=== PATIENT | female | born 1995 | race Caucasian/White ===

== ENCOUNTER → 2018-03-21 | Outpatient (CLI) | payer OTHER ==
[2018-03-21 14:35] LABS: HCT 33.9 % (34.0-46.0); HGB 11.2 gm/dL (11.4-16.0); MCH 27.7 pg (25.0-35.0); MCV 83.8 fL (80.0-100.0); Mean Platelet Volume 9.3; Platelet Count 199 k/uL (150-450); RBC 4.05 m/uL (3.80-5.40); RDW 13.3 % (11.5-15.5); WBC 12.4 k/uL (3.8-10.6)
== END ==
LOC: LABWHC1 12:42
PROVIDERS: ATTEND Obstetrics & Gynecology
DX: Z34.02 Encounter for supervision of normal first pregnancy, second trimester (principal); Z3A.00 Weeks of gestation of pregnancy not specified
CPT/HCPCS: 36415; 82950; 85027

== ENCOUNTER 2018-04-05 16:43 | Outpatient (CLI) | payer OTHER ==
[2018-04-05 17:34] LABS: Appearance,Urine Cloudy (Clear); Bacteria,Urine Rare /hpf; Bilirubin,Urine Negative (Negative); Blood,Urine Negative (Negative); Color,Urine Light Yellow; Glucose,Urine (UA) Negative (Negative); Ketones,Urine Negative (Negative); Leukocyte Esterase,Urine Large (Negative); Mucus,Urine Rare /hpf; Nitrite,Urine Negative (Negative); PH, Urine 6.5 (5.0-8.0); Protein,Urine Negative (Negative); RBC,Urine 1 /hpf (0-5); Specific Gravity,Urine 1.011 (1.001-1.035); Squamous Epithelial Cell,Urine 5 /hpf (0-4); Urobilinogen,Urine <2.0 mg/dL (<2.0); WBC,Urine 7 /hpf (0-5)
[2018-04-05 18:53] VITALS: BP 120/74; PULSE 88; RESP 18; TEMP 96.6
--- NOTE | 2018-04-27 08:30 | P.MSEPDOC ---
Presenting Problems - Arrival Data Date of Arrival on Unit: 04/05/18 Time of Arrival on Unit: 16:43 Mode of Transport: Ambulatory Vital Signs - Temperature Temperature: 96.6 F - Pulse Right Pulse Oximetery Pulse Rate: 88 Pulse Assessment Method: Automatic Cuff - Respirations Respiratory Rate: 18 Oxygen Delivery Method: Room Air O2 Sat by Pulse Oximetry: 96 - Blood Pressure Right Arm Blood Pressure: 120/74 Blood Pressure Mean: 89 Blood Pressure Source: Automatic Cuff Medical Screen Scoring (Post) - Cervical Exam Dilation: Exam Deferred Effacement: Exam Deferred Membranes: Intact - Uterine Contractions Frequency: N/A Duration: N/A Intensity: N/A - Maternal Vital Signs Maternal Temperature: N/A Maternal Blood Pressure: N/A Signs of Preeclampsia: N/A Maternal Respirations: N/A - Pain Assessment Pain Location and Character: Lower, Abdomen Pain Scale Used: Numeric (1 - 10) Pain Intensity: 3 Pain Management Goal: 2 Pain Description: *Acute, Pressure Pain Radiation Location: none Pain Frequency: Occasional Pain Duration: 1 Pain Duration Units: Days Pain Behavior: Vocalization Effects of Pain: none Pain Aggravating Factors: Position Pharmacological Interventions: Discuss Pain Med Options Non-Pharmacological Interventions: Position/Reposition - Maternal Trauma Maternal Trauma: N/A - Assessment Heart Rate: 130 Heart Rate - NICHD Category: Category I (Normal) = 0 NST: Reactive Position: N/A Station: N/A - Total Score Total Score (Post): 0 - Post Treatment Level of Risk Post Treatment Level of Risk: Low (0-5) Physician Notification (Post) - Physician Notified Physician Notified Date: 04/05/18 Physician Notified Time: 17:55 Physician/Practitioner Notified:: Dr Zarco Spoke With: [id number] New Order Received: Yes (discharge pt with instructions) - Notification Comment Comment: pt concerns of no movement, now feeling movement. urinalysis negative. Disposition - Disposition OB Disposition: LDRP Suite Discharge Date: 04/05/18 Discharge Time: 18:00 I agree with the RN Medical Screening Exam: Yes Risk & Benefit of care provided described in d/c instruction: Yes Diagnosis: DECREASED MOVEMENTS, THIRD TRIMESTER, UNSP
== END 2018-04-05 18:00 | disposition home or self-care (01) ==
LOC: FBPOP 16:43
PROVIDERS: ATTEND Obstetrics & Gynecology
DX: O36.8130 Decreased fetal movements, third trimester, not applicable or unspecified (principal); Z3A.00 Weeks of gestation of pregnancy not specified
CPT/HCPCS: 59025; 81001; G0463; 99213

== ENCOUNTER 2018-06-05 22:36 | Outpatient (CLI) | payer OTHER ==
[2018-06-05 22:49] VITALS: BP 125/76; PULSE 98; RESP 16; TEMP 97.3
--- NOTE | 2018-06-06 06:36 | P.MSEPDOC ---
Presenting Problems - Arrival Data Date of Arrival on Unit: 06/05/18 Time of Arrival on Unit: 22:36 Mode of Transport: Ambulatory - Complaint OB-Reason for Admission/Chief Complaint: Rule Out PROM Comment: PROM 1100, clear, small Medical History - Information : 1 Para: 0 Term: 0 : 0 Abortions: Spontaneous or Elective: 0 Number of Living Children: 0 - Gestational Age Gestational Age by RICCO (wks/days): 38 Weeks and 0 Days - History Complications: Smoker Review of Systems - Review of Systems Constitutional: No problems Breast: No problems ENT: No problems Cardiovascular: No problems Respiratory: No problems Gastrointestinal: No problems Genitourinary: No problems Musculoskeletal: No problems Neurological: No problems Skin: No problems Vital Signs - Temperature Temperature: 97.3 F Temperature Source: Temporal Artery Scan - Pulse Right Brachial Pulse Rate: 98 Pulse Assessment Method: Automatic Cuff - Respirations Respiratory Rate: 16 Oxygen Delivery Method: Room Air - Blood Pressure Right Arm Blood Pressure: 125/76 Blood Pressure Mean: 92 Blood Pressure Source: Automatic Cuff Medical Screen Scoring (Pre) - Cervical Exam Dilation: Exam Deferred Effacement: Exam Deferred - Uterine Contractions Frequency: N/A Duration: N/A Intensity: N/A - Maternal Vital Signs Maternal Temperature: N/A Maternal Blood Pressure: N/A Signs of Preeclampsia: N/A Maternal Respirations: N/A - Pain Assessment Pain Scale Used: Numeric (1 - 10) Pain Intensity: 0 Pain Behavior: None Exhibited - Assessment Baseline FHR: 145 Heart Rate - NICHD Category: Category I (Normal) = 0 NST: Reactive Position: N/A Station: N/A - Total Score Total Score (Pre): 0 - Level of Risk Level of Risk: Low (0-5) Medical Screen Scoring (Post) - Pain Assessment Pain Scale Used: Numeric (1 - 10) Pain Intensity: 0 - Maternal Trauma Maternal Trauma: N/A - Assessment Heart Rate: 140 Heart Rate - NICHD Category: Category I (Normal) = 0 NST: Reactive Position: N/A - Total Score Total Score (Post): 0 - Post Treatment Level of Risk Post Treatment Level of Risk: Low (0-5) Physician Notification (Post) - Physician Notified Physician Notified Date: 06/05/18 Physician Notified Time: 23:19 Physician/Practitioner Notified:: anthony Spoke With: anthony New Order Received: Yes - Notification Comment Comment: d/c home Disposition - Disposition OB Disposition: Discharge to home Discharge Date: 06/05/18 Discharge Time: 23:12 I agree with the RN Medical Screening Exam: Yes Risk & Benefit of care provided described in d/c instruction: Yes Diagnosis: FALSE LABOR BEFORE 37 COMPLETED WEEKS OF GEST, THIRD TRI
== END 2018-06-05 23:12 | disposition home or self-care (01) ==
LOC: FBPOP 22:36
PROVIDERS: ATTEND Obstetrics & Gynecology
DX: O47.03 False labor before 37 completed weeks of gestation, third trimester (principal); Z3A.38 38 weeks gestation of pregnancy
CPT/HCPCS: 59025; 84112; G0463; 99213

== ENCOUNTER 2018-06-19 16:34 | Inpatient (IN) | payer OTHER ==
[2018-06-20] MEDS ORDERED: OXYTOCIN 10 UNIT/ML 1 ML VIAL IM PRN (06:55)
[2018-06-20] MEDS ORDERED: TERBUTALINE 1 MG/ML VIAL SQ PRN (06:55)
[2018-06-20] MEDS ORDERED: LIDOCAINE 0.5% (PF) 5 MG/ML (50 ML SDV) SQ PRN (06:55)
[2018-06-20] MEDS ORDERED: METHYLERGONOVINE 0.2 MG/ML 1 ML AMP IM PRN (06:55)
[2018-06-20] MEDS ORDERED: CARBOPROST TROMETHAMINE 250 MCG/ML 1 ML AMP IM PRN (06:55)
[2018-06-20] MEDS ORDERED: OXYTOCIN 20 UNITS/1000 ML NS 1,000 ML IV SCH (07:00)
[2018-06-20] MEDS: LACTATED RINGERS 1,000 ML IV SCH ×3 (07:06→13:12)
[2018-06-20 07:14] VITALS: BMI 37.3
[2018-06-20 07:16] LABS: Basophils % (A) 0 %; Eosinophils # (A) 0.2 k/uL (0-0.7); Eosinophils % (A) 1 %; HCT 31.6 % (34.0-46.0); HGB 10.1 gm/dL (11.4-16.0); Lymphocytes # (A) 2.8 k/uL (1.0-4.8); Lymphocytes % (A) 19 %; MCH 24.3 pg (25.0-35.0); MCHC 32.1 g/dL (31.0-37.0); MCV 75.5 fL (80.0-100.0); Mean Platelet Volume 9.8; Microcytosis Slight; Monocytes # (A) 0.8 k/uL (0-1.0); Monocytes % (A) 5 %; Neutrophils # (A) 10.4 k/uL (1.3-7.7); Neutrophils % (A) 71 %; Platelet Count 209 k/uL (150-450); RBC 4.18 m/uL (3.80-5.40); RDW 14.2 % (11.5-15.5); WBC 14.7 k/uL (3.8-10.6)
[2018-06-20] MEDS: FAMOTIDINE 20 MG/2 ML VIAL IV SCH (08:32)
[2018-06-20] MEDS ORDERED: BUTORPHANOL 1 MG/ML 1 ML VIAL IV PRN (09:30)
[2018-06-20] MEDS ORDERED: ROPIVACAINE 5MG/ML 20ML VIAL ONE (11:42)
[2018-06-20] MEDS ORDERED: fentaNYL (PF) 50 MCG/ML 5 ML AMP ONE (11:42)
[2018-06-20] MEDS ORDERED: SODIUM CHLORIDE 0.9% 100 ML BAG ONE (11:42)
[2018-06-20] MEDS ORDERED: ROPIVACAINE 100 MG, fentaNYL (PF) 200 MCG in SODIUM CHLORIDE 0.9% 76 ML EPIDURAL ONE (12:05)
[2018-06-20] MEDS ORDERED: SIMETHICONE 80 MG CHEWABLE PO PRN (18:31)
[2018-06-20] MEDS ORDERED: ZOLPIDEM 5 MG TAB PO PRN (18:31)
[2018-06-20] MEDS ORDERED: BENZOCAINE/MENTHOL SPRAY 1 GM/SPRAY AEROSOL TOPICAL PRN (18:31)
[2018-06-20] MEDS ORDERED: HYDROCORTISONE 2.5% RECTAL CREAM 30 GM TUBE RECTAL PRN (18:31)
[2018-06-20] MEDS ORDERED: ACETAMINOPHEN TAB 325 MG TAB PO PRN (18:31)
[2018-06-20] MEDS ORDERED: diphenhydrAMINE 25 MG CAP PO PRN (18:31)
[2018-06-20] MEDS ORDERED: diphenhydrAMINE 50 MG/ML 1 ML VIAL IVP PRN ×2 (18:31)
[2018-06-20] MEDS ORDERED: LANOLIN CREAM 5 GM TUBE TOPICAL PRN (18:31)
[2018-06-20] MEDS ORDERED: WITCH HAZEL 1 EACH MED..PAD TOPICAL PRN (18:31)
[2018-06-20] MEDS ORDERED: HYDROcodone/APAP 5-325MG 1 EACH TAB PO PRN (18:31)
[2018-06-20] MEDS ORDERED: diphenhydrAMINE 50 MG CAP PO PRN (18:31)
--- NOTE | 2018-06-20 18:33 | P.HPOB ---
History of Present Illness H&P Date: 06/20/18 Chief Complaint: Intrauterine at term: Induction of labor Charline is a 23-year-old G one P0 at 40 weeks gestation who arrives for induction of labor. Her course was generally unremarkable and she is feeling well at this time. She was dilated to 2 cm and artificial rupture membranes was performed with clear fluid noted. We'll planning Pitocin augmentation of labor and she expects to use epidural for analgesia. All questions are answered for her prior to moving forward and she is aware of increased risk for section. Otherwise her pertinent blood type is A+ and rubella is immune, hepatitis B surface antigen was negative as was groupie strep/RPR and HIV. Vital signs stable and afebrile. Heart regular, lungs clear, extremities without pain. Regarding 1 tracing is noted. Past Medical History Past Medical History: No Reported History History of Any Multi-Drug Resistant Organisms: None Reported Past Surgical History: Ear Surgery, Tonsillectomy Past Anesthesia/Blood Transfusion Reactions: No Reported Reaction Past Psychological History: ADD/ADHD, Bipolar Smoking Status: Current every day smoker Past Alcohol Use History: None Reported Past Drug Use History: None Reported - Past Family History Father Family Medical History: No Reported History Medications and Allergies Home Medications Medication Instructions Recorded Confirmed Type Pnv No.95/Ferrous Fum/Folic AC 1 tab PO DAILY 04/05/18 06/20/18 History [ Multivitamin Tablet] Calcium Carbonate [Tums] 500 mg PO QID PRN 06/20/18 06/20/18 History Allergies Allergy/AdvReac Type Severity Reaction Status Date / Time No Known Allergies Allergy Verified 06/20/18 06:53 Exam Osteopathic Statement: *. No significant issues noted on an osteopathic structural exam other than those noted in the History and Physical/Consult. Vital Signs Temp Pulse Resp BP Pulse Ox 06/20/18 07:09 98 F 99 16 121/80 98 Intake and Output 06/20/18 06/20/18 06/20/18 06:59 14:59 22:59 Other: Weight 92.533 kg 92.533 kg - OBG Physical Exam Breast: both: normal (no masses) Abdomen: bowel sounds normal, no diffuse tenderness, no bruit present, no guarding noted, no hepatomegaly, no splenomegaly, no mass Vulva: both: normal Vagina: normal moisture, no discharge Cervix: no lesion, no discharge Uterus: normal size, normal contour Adnexa: both: normal Anus/Rectum: normal perianal skin, no rectal mass, no hemorrhoids, heme negative Results Result Diagrams: 06/20/18 06:56 Abnormal Lab Results - Last 24 Hours (Table) 06/20/18 Range/Units 06:56 WBC 14.7 H (3.8-10.6) k/uL Hgb 10.1 L (11.4-16.0) gm/dL Hct 31.6 L (34.0-46.0) % MCV 75.5 L (80.0-100.0) fL MCH 24.3 L (25.0-35.0) pg Neutrophils # 10.4 H (1.3-7.7) k/uL
--- NOTE | 2018-06-20 18:35 | P.PROBDLV ---
Vaginal Delivery Note - . Vaginal Delivery Note: Patient progressed to complete and pushing with spontaneous vaginal delivery of a viable female over a second-degree midline perineal laceration. Following delivery of the head from left occiput anterior position, mouth nares were bulb suctioned and anterior posterior shoulders were easily delivered. Once this was accomplished baby was placed on mother's abdomen where the umbilical cord was clamped cut usual fashion following 30 seconds of cord pulsation. Nursery personnel was present to assume care. Placenta was then delivered intact and Pitocin was added to the IV. Second-degree midline laceration was then repaired in usual fashion following Xylocaine for analgesia and 3-0 Vicryl scores were 8 and 9 at one and 5 minutes respectively and weight was 7 lbs. 4 oz. Both mother and baby are stable following delivery.
[2018-06-20] MEDS: IBUPROFEN 600 MG TAB PO PRN (18:40)
[2018-06-20] MEDS ORDERED: guaiFENesin-DM 100-10MG/5ML 10 ML CUP PO PRN (21:23)
[2018-06-20] MEDS: SENNOSIDES-DOCUSATE SODIUM 1 EACH TAB PO SCH (21:37)
[2018-06-21] MEDS: FAMOTIDINE 20 MG/2 ML VIAL IV SCH (01:36)
[2018-06-21] MEDS: IBUPROFEN 600 MG TAB PO PRN ×3 (01:59→15:41)
--- NOTE | 2018-06-21 07:24 | P.DS ---
Providers Date of admission: 06/20/18 06:38 Expected date of discharge: 06/21/18 Attending physician: Nithin Vieyra Primary care physician: Stated None Hospital Course: Charline is doing very well post day 1. She is ambulating, voiding, and she is tolerating her diet. She voices no complaints. Vital signs are stable and afebrile. Heart regular, lungs clear, extremities without pain. She is requesting discharge home tonight. Prescription for Motrin was for her to her pharmacy. All questions were answered and discharge instructions were thoroughly reviewed she will follow up with me in 6 weeks. Patient Condition at Discharge: Good Plan - Discharge Summary New Discharge Prescriptions: New Ibuprofen [Motrin] 600 mg PO Q6HR PRN #30 tab PRN Reason: Pain No Action Pnv No.95/Ferrous Fum/Folic AC [ Multivitamin Tablet] 1 tab PO DAILY Calcium Carbonate [Tums] 500 mg PO QID PRN PRN Reason: Heartburn Discharge Medication List Pnv No.95/Ferrous Fum/Folic AC [ Multivitamin Tablet] 1 tab PO DAILY 05/13 [History] Calcium Carbonate [Tums] 500 mg PO QID PRN 06/20/18 [History] Ibuprofen [Motrin] 600 mg PO Q6HR PRN #30 tab 06/21/18 [Rx] Follow up Appointment(s)/Referral(s): Nithin Vieyra DO [Doctor of Osteopathic Medicine] - 6 Weeks Activity/Diet/Wound Care/Special Instructions: No heavy lifting, limit stairs and driving, and pelvic rest. If any high temperatures, heavy bleeding, or severe pain call my office Discharge Disposition: HOME SELF-CARE
[2018-06-21] MEDS: SENNOSIDES-DOCUSATE SODIUM 1 EACH TAB PO SCH (07:41)
[2018-06-21 08:37] VITALS: RESP 16
[2018-06-21 16:41] VITALS: BP 98/61; PULSE 81; TEMP 97.8
== END 2018-06-21 20:00 | disposition home or self-care (01) | DRG 807 ==
LOC: 4FBP 06-20 06:38
PROVIDERS: ADMIT Obstetrics & Gynecology; ATTEND Obstetrics & Gynecology
PROC: 10E0XZZ Delivery of Products of Conception, External Approach (ICD-10-PCS; principal; 2018-06-20)
PROC: 0KQM0ZZ Repair Perineum Muscle, Open Approach (ICD-10-PCS; 2018-06-20)
PROC: 3E033VJ Introduction of Other Hormone into Peripheral Vein, Percutaneous Approach (ICD-10-PCS; 2018-06-20)
PROC: 10907ZC Drainage of Amniotic Fluid, Therapeutic from Products of Conception, Via Natural or Artificial Opening (ICD-10-PCS; 2018-06-20)
PROC: 00HU33Z Insertion of Infusion Device into Spinal Canal, Percutaneous Approach (ICD-10-PCS; 2018-06-20)
PROC: 3E0R3BZ Introduction of Anesthetic Agent into Spinal Canal, Percutaneous Approach (ICD-10-PCS; 2018-06-20)
DX: O70.1 Second degree perineal laceration during delivery (principal); Z37.0 Single live birth; O99.344 Other mental disorders complicating childbirth; F31.9 Bipolar disorder, unspecified; F90.9 Attention-deficit hyperactivity disorder, unspecified type; O99.334 Smoking (tobacco) complicating childbirth; F17.200 Nicotine dependence, unspecified, uncomplicated; Z3A.40 40 weeks gestation of pregnancy; Z79.899 Other long term (current) drug therapy
CPT/HCPCS: 85025; 86850; 86900; 86901

== ENCOUNTER 2019-12-31 09:29 | Emergency (ER) | payer OTHER ==
[2019-12-31 09:35] VITALS: RESP 18; TEMP 97.5
[2019-12-31] MEDS ORDERED: SODIUM CHLORIDE 0.9% 1,000 ML IV STA ×2 (09:57→12:20)
[2019-12-31] MEDS ORDERED: MORPHINE SULFATE 4 MG/ML SYRINGE IV STA (10:03)
[2019-12-31] MEDS ORDERED: MORPHINE SULFATE 4 MG/ML SYRINGE IVP STA ×2 (10:07→12:02)
--- NOTE | 2019-12-31 10:10 | ED ---
General Adult HPI - General Chief complaint: Abdominal Pain Stated complaint: back pain Time Seen by Provider: 12/31/19 09:54 Source: patient Mode of arrival: ambulatory Limitations: no limitations - History of Present Illness Initial comments: Dictation was produced using Dat[employer] dictation software. please excuse any grammatical, word or spelling errors. This patient was cared for during a federal and state declared state of emergency secondary to Covid 19 Chief Complaint: 24-year-old feel presents with severe lower right back pain. History of Present Illness: 24-year-old female presents today with severe lower back pain. Patient states that it started today. She woke up with these pain. Patient has any radiation of symptoms. Denies any fever, chills or night sweats. No nausea vomiting. Denies any vaginal discharge. She denies any abdominal pain. Patient is sexually active. She does not know if she is or not. States pain is severe. She denies any history of kidney stones. Denies any diarrhea. Denies any urinary symptoms. The ROS documented in this emergency department record has been reviewed and confirmed by me. Those systems with pertinent positive or negative responses have been documented in the HPI. All other systems are other negative and/or noncontributory. PHYSICAL EXAM: General Impression: Alert and oriented x3, acute distress secondary to pain, diaphoretic HEENT: Normocephalic atraumatic, extra-ocular movements intact, pupils equal and reactive to light bilaterally, mucous membranes moist. Cardiovascular: Heart regular rate and rhythm Chest: Able to complete full sentences, no retractions, no tachypnea Abdomen: abdomen soft, non-tender, non-distended, no organomegaly Musculoskeletal: Pulses present and equal in all extremities, no peripheral edema, no tenderness to palpation over the lower back, no CVA tenderness Motor: no focal deficits noted Neurological: CN II-XII grossly intact, no focal motor or sensory deficits noted Skin: Intact with no visualized rashes Psych: Normal affect and mood ED course: 24-year-old female presents with right lower back pain. As upon arrival are within acceptable limits. Patient in severe distress. Patient given 4 mg of IV morphine. Laboratory evaluation obtained. Mild stenosis 1.4. Metabolic panel is unremarkable. Urinalysis shows greater than 102 red blood cells. [address] of the abdomen and pelvis was obtained showing 5 mm UVJ calculus with mild to moderate obstructive uropathy. There is also additional nonobstructive right renal calculi. Patient observed in emergency department for couple hours. Patient reevaluated bedside she reports complete resolution of her symptoms. Patient likely passed the stone. Patient clear for discharge she is given referral to urology. Patient told that she has incidental findings on her CT she is advised follow up with her primary care physician regarding these. - Related Data Home Medications Medication Instructions Recorded Confirmed No Known Home Medications 12/31/19 12/31/19 Allergies Allergy/AdvReac Type Severity Reaction Status Date / Time Penicillins Allergy Rash/Hives Verified 12/31/19 10:44 Review of Systems ROS Statement: Those systems with pertinent positive or pertinent negative responses have been documented in the HPI. ROS Other: All systems not noted in ROS Statement are negative. Past Medical History Past Medical History: No Reported History History of Any Multi-Drug Resistant Organisms: None Reported Past Surgical History: Ear Surgery, Tonsillectomy Past Anesthesia/Blood Transfusion Reactions: No Reported Reaction Past Psychological History: ADD/ADHD, Bipolar Smoking Status: Current every day smoker Past Alcohol Use History: None Reported Past Drug Use History: None Reported - Past Family History Father Family Medical History: No Reported History General Exam Limitations: no limitations Course Vital Signs 12/31/19 12/31/19 09:30 12:11 Temperature 97.5 F L Pulse Rate 91 68 Respiratory 18 18 Rate Blood Pressure 124/83 104/68 O2 Sat by Pulse 97 99 Oximetry Medical Decision Making - Lab Data Result diagrams: 12/31/19 10:01 12/31/19 10:01 Lab Results 12/31/19 12/31/19 12/31/19 Range/Units 10:01 10:01 10:01 WBC 11.4 H (3.8-10.6) k/uL RBC 5.56 H (3.80-5.40) m/uL Hgb 13.1 (11.4-16.0) gm/dL Hct 41.3 (34.0-46.0) % MCV 74.2 L (80.0-100.0) fL MCH 23.6 L (25.0-35.0) pg MCHC 31.8 (31.0-37.0) g/dL RDW 15.8 H (11.5-15.5) % Plt Count 246 (150-450) k/uL Neutrophils % 73 % Lymphocytes % 19 % Monocytes % 4 % Eosinophils % 2 % Basophils % 0 % Neutrophils # 8.3 H (1.3-7.7) k/uL Lymphocytes # 2.1 (1.0-4.8) k/uL Monocytes # 0.5 (0-1.0) k/uL Eosinophils # 0.2 (0-0.7) k/uL Basophils # 0.0 (0-0.2) k/uL Microcytosis Slight Sodium 138 (137-145) mmol/L Potassium 4.4 (3.5-5.1) mmol/L Chloride 108 H (98-107) mmol/L Carbon Dioxide 22 (22-30) mmol/L Anion Gap 8 mmol/L BUN 11 (7-17) mg/dL Creatinine 0.69 (0.52-1.04) mg/dL Est GFR (CKD-EPI)AfAm >90 (>60 ml/min/1.73 sqM) Est GFR (CKD-EPI)NonAf >90 (>60 ml/min/1.73 sqM) Glucose 96 (74-99) mg/dL Calcium 9.3 (8.4-10.2) mg/dL Total Bilirubin 0.8 (0.2-1.3) mg/dL AST 30 (14-36) U/L ALT 29 (4-34) U/L Alkaline Phosphatase 134 H (38-126) U/L Total Protein 7.8 (6.3-8.2) g/dL Albumin 4.5 (3.5-5.0) g/dL Lipase 64 (23-300) U/L Urine Color Urine Appearance (Clear) Urine pH (5.0-8.0) Ur Specific [place] (1.001-1.035) Urine Protein (Negative) Urine Glucose (UA) (Negative) Urine Ketones (Negative) Urine Blood (Negative) Urine Nitrite (Negative) Urine Bilirubin (Negative) Urine Urobilinogen (<2.0) mg/dL Ur Leukocyte Esterase (Negative) Urine RBC (0-5) /hpf Urine WBC (0-5) /hpf Ur Squamous Epith Cells (0-4) /hpf Urine Mucus (None) /hpf Urine HCG, Qual Not Detected (Not Detectd) 12/31/19 Range/Units 12:00 WBC (3.8-10.6) k/uL RBC (3.80-5.40) m/uL Hgb (11.4-16.0) gm/dL Hct (34.0-46.0) % MCV (80.0-100.0) fL MCH (25.0-35.0) pg MCHC (31.0-37.0) g/dL RDW (11.5-15.5) % Plt Count (150-450) k/uL Neutrophils % % Lymphocytes % % Monocytes % % Eosinophils % % Basophils % % Neutrophils # (1.3-7.7) k/uL Lymphocytes # (1.0-4.8) k/uL Monocytes # (0-1.0) k/uL Eosinophils # (0-0.7) k/uL Basophils # (0-0.2) k/uL Microcytosis Sodium (137-145) mmol/L Potassium (3.5-5.1) mmol/L Chloride (98-107) mmol/L Carbon Dioxide (22-30) mmol/L Anion Gap mmol/L BUN (7-17) mg/dL Creatinine (0.52-1.04) mg/dL Est GFR (CKD-EPI)AfAm (>60 ml/min/1.73 sqM) Est GFR (CKD-EPI)NonAf (>60 ml/min/1.73 sqM) Glucose (74-99) mg/dL Calcium (8.4-10.2) mg/dL Total Bilirubin (0.2-1.3) mg/dL AST (14-36) U/L ALT (4-34) U/L Alkaline Phosphatase (38-126) U/L Total Protein (6.3-8.2) g/dL Albumin (3.5-5.0) g/dL Lipase (23-300) U/L Urine Color Yellow Urine Appearance Cloudy H (Clear) Urine pH 5.5 (5.0-8.0) Ur Specific [place] 1.025 (1.001-1.035) Urine Protein 1+ H (Negative) Urine Glucose (UA) Negative (Negative) Urine Ketones Negative (Negative) Urine Blood Large H (Negative) Urine Nitrite Negative (Negative) Urine Bilirubin Negative (Negative) Urine Urobilinogen <2.0 (<2.0) mg/dL Ur Leukocyte Esterase Trace H (Negative) Urine RBC >182 H (0-5) /hpf Urine WBC 4 (0-5) /hpf Ur Squamous Epith Cells 2 (0-4) /hpf Urine Mucus Many H (None) /hpf Urine HCG, Qual (Not Detectd) Disposition Clinical Impression: Kidney stone Disposition: HOME SELF-CARE Condition: Good Instructions (If sedation given, give patient instructions): Kidney Stones (ED) Additional Instructions: Please follow up with urology on a nonemergent basis for outpatient management of kidney stones. There are multiple nonspecific findings that were seen on her CT that needs to be followed up by with her primary care physician. Is patient prescribed a controlled substance at d/c from ED?: No Referrals: Chriss Yusuf MD [STAFF PHYSICIAN] - 1-2 days Time of Disposition: 13:01
[2019-12-31 10:12] LABS: Basophils % (A) 0 %; Eosinophils # (A) 0.2 k/uL (0-0.7); Eosinophils % (A) 2 %; HCT 41.3 % (34.0-46.0); HGB 13.1 gm/dL (11.4-16.0); Lymphocytes # (A) 2.1 k/uL (1.0-4.8); Lymphocytes % (A) 19 %; MCH 23.6 pg (25.0-35.0); MCHC 31.8 g/dL (31.0-37.0); MCV 74.2 fL (80.0-100.0); Mean Platelet Volume 9.2; Microcytosis Slight; Monocytes # (A) 0.5 k/uL (0-1.0); Monocytes % (A) 4 %; Neutrophils # (A) 8.3 k/uL (1.3-7.7); Neutrophils % (A) 73 %; Platelet Count 246 k/uL (150-450); RBC 5.56 m/uL (3.80-5.40); RDW 15.8 % (11.5-15.5); WBC 11.4 k/uL (3.8-10.6)
[2019-12-31] MEDS ORDERED: ONDANSETRON 4 MG/2 ML VIAL IVP STA (10:22)
[2019-12-31 10:27] LABS: ALT 29 U/L (4-34); AST 30 U/L (14-36); African American GFR (CKD) >90 (>60 ml/min/1.73 sqM); Albumin 4.5 g/dL (3.5-5.0); Alkaline Phosphatase 134 U/L (38-126); Anion Gap 8 mmol/L; Blood Urea Nitrogen 11 mg/dL (7-17); Calcium 9.3 mg/dL (8.4-10.2); Carbon Dioxide 22 mmol/L (22-30); Chloride 108 mmol/L (98-107); Glucose 96 mg/dL (74-99); Non-African American GFR(CKD) >90 (>60 ml/min/1.73 sqM); Potassium 4.4 mmol/L (3.5-5.1); Sodium 138 mmol/L (137-145); Total Bilirubin 0.8 mg/dL (0.2-1.3); Total Protein 7.8 g/dL (6.3-8.2)
[2019-12-31 12:14] VITALS: BP 104/68; PULSE 68
--- NOTE | 2019-12-31 12:16 | CT ---
EXAMINATION TYPE: CT abdomen pelvis w con DATE OF EXAM: 12/31/2019 COMPARISON: 01/20/2015 HISTORY: 24-year-old female cramping, back pain, diarrhea TECHNIQUE: Contiguous axial scanning of the abdomen and pelvis following administration of 100 ml Iso eben 300 IV contrast. Delayed images through the kidneys and coronal/sagittal reconstructions perform ed. CT DLP: 1528.4 mGycm Automated exposure control for dose reduction was used. FINDINGS: Heart size without pericardial effusion. Small hiatal hernia. Lung bases clear without pleural effusi on. No focal liver lesion or biliary ductal dilatation. Portal venous system is patent. Gallbladder, adrenal glands, left kidney, spleen, and pancreas appear within normal limits. Four nonobstructive right renal calculi measuring up to 4 mm. There is mild to moderate right-sided h ydroureteronephrosis. A 5 mm calculus is present at the right UVJ. No dilated small bowel, free fluid, or free air. Numerous scattered nonenlarged and borderline sized mesenteric lymph nodes measuring up to 8 mm, refe r to coronal image 42. Appearance is relatively unchanged from prior. Likely chronic reactive/post in flammatory etiology. Mild scattered stool. Normal appendix. No pericolonic inflammatory change. Uterus anteverted. Bladder collapsed. There is a 2.0 cm dominant follicle functional cyst left ovary. Right ovary is visualized. No abnormal fluid collection the pelvis or pelvic lymphadenopathy. Bones: Small osteitis pubis changes. No osseous destructive process. IMPRESSION: 1. A 5 mm right UVJ calculus with mild to moderate obstructive uropathy. 2. Additional nonobstructive right renal calculi measuring up to 4 mm. 3. Small hiatal hernia. 2.0 cm dominant follicle or functional cyst left ovary. Scattered borderline sized mesenteric lymph nodes are unchanged, likely chronic reactive/post inflammatory etiology.
[2019-12-31] MEDS ORDERED: KETOROLAC 30 MG/ML 1 ML VIAL IVP STA (12:20)
[2019-12-31 12:23] LABS: Appearance,Urine Cloudy (Clear); Bilirubin,Urine Negative (Negative); Blood,Urine Large (Negative); Color,Urine Yellow; Glucose,Urine (UA) Negative (Negative); Ketones,Urine Negative (Negative); Leukocyte Esterase,Urine Trace (Negative); Mucus,Urine Many /hpf; Nitrite,Urine Negative (Negative); PH, Urine 5.5 (5.0-8.0); Protein,Urine 1+ (Negative); RBC,Urine >182 /hpf (0-5); Specific Gravity,Urine 1.025 (1.001-1.035); Squamous Epithelial Cell,Urine 2 /hpf (0-4); Urobilinogen,Urine <2.0 mg/dL (<2.0); WBC,Urine 4 /hpf (0-5)
== END 2019-12-31 13:37 | disposition home or self-care (01) ==
LOC: EC 09:29
DX: M48.061 Spinal stenosis, lumbar region without neurogenic claudication (principal); N20.2 Calculus of kidney with calculus of ureter; N13.9 Obstructive and reflux uropathy, unspecified; F17.200 Nicotine dependence, unspecified, uncomplicated; Z88.0 Allergy status to penicillin
CPT/HCPCS: 36415; 80053; 83690; 85025; 81001; 81025; 84702; 74177; 96374; 96375 ×2; 96376; 96361 ×2; 99284; J2270; J2405; J1885; Q9967

== ENCOUNTER 2020-12-01 20:25 | Emergency (ER) | payer OTHER ==
[2020-12-01 20:41] VITALS: BP 124/79; PULSE 91; RESP 16; TEMP 97.9
--- NOTE | 2020-12-01 21:02 | ED ---
URI HPI - General Chief Complaint: Upper Respiratory Infection Stated Complaint: Cough,Loss of voice Time Seen by Provider: 12/01/20 20:43 Source: patient Mode of arrival: ambulatory Limitations: no limitations - History of Present Illness Initial Comments: Patient is a 25-year-old female presenting to the emergency department with concerns of a cough and loss of her voice started yesterday. She states she noticed a little bit of phlegm production and her cough yesterday and then slowly lost her voice or up the evening. She denies any chest pain or shortness of breath, no fevers or chills. She denies any nausea or vomiting. She denies history of asthma or COPD. Her daughter is here with her now with similar symptoms. She has no further complaints at this time. Upon arrival to the ER her vitals are stable. - Related Data Home Medications Medication Instructions Recorded Confirmed No Known Home Medications 12/31/19 12/31/19 Allergies Allergy/AdvReac Type Severity Reaction Status Date / Time Penicillins Allergy Rash/Hives Verified 12/01/20 20:38 Review of Systems ROS Statement: Those systems with pertinent positive or pertinent negative responses have been documented in the HPI. ROS Other: All systems not noted in ROS Statement are negative. Past Medical History Past Medical History: No Reported History History of Any Multi-Drug Resistant Organisms: None Reported Past Surgical History: Ear Surgery, Tonsillectomy Past Anesthesia/Blood Transfusion Reactions: No Reported Reaction Past Psychological History: ADD/ADHD, Bipolar Smoking Status: Current every day smoker Past Alcohol Use History: Rare Past Drug Use History: None Reported - Past Family History Father Family Medical History: No Reported History General Exam - General Exam Comments Initial Comments: GENERAL: Patient is well-developed and well-nourished. Patient is nontoxic and in no acute distress. HEAD: Atraumatic, normocephalic. EYES: Pupils equal round and reactive to light, extraocular movements intact, sclera anicteric, conjunctiva are normal. Eyelids were unremarkable. ENT: TMs normal, nares patent, oropharynx clear without exudates. Moist mucous membranes. NECK: Normal range of motion, supple without lymphadenopathy or JVD. LUNGS: Unlabored respirations. Breath sounds clear to auscultation bilaterally and equal. No wheezes rales or rhonchi. HEART: Regular rate and rhythm without murmurs, rubs or gallops. ABDOMEN: Soft, nontender, normoactive bowel sounds. No guarding, no rebound. No masses appreciated. : Deferred MUSCULOSKELETAL: Normal extremities with adequate strength and normal range of motion, no pitting or edema. No clubbing or cyanosis. NEUROLOGICAL: Patient is alert and oriented x 3. Motor and sensory are also intact. Cranial nerves II through XII grossly intact. Symmetrical smile. Normal speech, normal gait. PSYCH: Normal mood, normal affect. SKIN: Warm, Dry, normal turgor, no rashes or lesions noted. Limitations: no limitations Course Vital Signs 12/01/20 20:39 Temperature 97.9 F Pulse Rate 91 Respiratory 16 Rate Blood Pressure 124/79 O2 Sat by Pulse 96 Oximetry Medical Decision Making - Medical Decision Making Patient is a 25-year-old female here for a cough and loss of voice that started yesterday. Her vitals are stable, her exam is normal. His exercise shows no acute process, covert swab is negative. I discussed with patient this is most likely viral in nature. Recommended [id number] cough suppressant, Tylenol and Motrin as needed. She can follow up with her PCP. She is in agreement with this plan of care and she is stable for discharge. Case discussed with Dr. Field. - Lab Data Lab Results 12/01/20 Range/Units 21:08 Coronavirus (PCR) Not Detected (Not Detectd) Disposition Clinical Impression: Viral respiratory illness Disposition: HOME SELF-CARE Condition: Stable Instructions (If sedation given, give patient instructions): Upper Respiratory Infection (ED) Additional Instructions: Please return to the Emergency Department if symptoms worsen or any other con cerns. May take OTC medications to treat your symptoms, tylenol/motrin for pain control. Follow-up with your primary doctor. Is patient prescribed a controlled substance at d/c from ED?: No Referrals: None,Stated [Primary Care Provider] - 1-2 days Time of Disposition: 22:36
--- NOTE | 2020-12-01 21:58 | XR ---
EXAMINATION TYPE: XR chest 2V DATE OF EXAM: 12/01/2020 COMPARISON: NONE HISTORY: Cough TECHNIQUE: 2 views FINDINGS: Heart and mediastinum are normal. Lungs are clear. Diaphragm is normal. Bony thorax is norm al. IMPRESSION: Normal chest. Normal heart.
== END 2020-12-01 22:46 | disposition home or self-care (01) ==
LOC: EC 20:25
DX: J98.8 Other specified respiratory disorders (principal); R49.1 Aphonia; B97.89 Other viral agents as the cause of diseases classified elsewhere; Z20.822 Contact with and (suspected) exposure to COVID-19; F17.200 Nicotine dependence, unspecified, uncomplicated; Z88.0 Allergy status to penicillin
CPT/HCPCS: 71046; 87635; 99283

== ENCOUNTER 2021-12-29 22:59 | Emergency (ER) | payer OTHER ==
[2021-12-29 23:20] VITALS: TEMP 98.2
[2021-12-29 23:54] LABS: Appearance,Urine Cloudy (Clear); Bacteria,Urine Rare /hpf; Bilirubin,Urine Negative (Negative); Blood,Urine Negative (Negative); Calcium Oxalate Crystals,Urine Many /hpf; Color,Urine Yellow; Glucose,Urine (UA) Negative (Negative); Ketones,Urine Negative (Negative); Leukocyte Esterase,Urine Large (Negative); Mucus,Urine Few /hpf; Nitrite,Urine Negative (Negative); PH, Urine 5.5 (5.0-8.0); Protein,Urine Trace (Negative); RBC,Urine 2 /hpf (0-5); Specific Gravity,Urine 1.023 (1.001-1.035); Squamous Epithelial Cell,Urine 11 /hpf (0-4); Urobilinogen,Urine <2.0 mg/dL (<2.0); WBC,Urine 9 /hpf (0-5)
--- NOTE | 2021-12-30 01:16 | ED ---
General Adult HPI - General Chief complaint: Back Pain/Injury Stated complaint: 12 wks preg, abdominal pain Time Seen by Provider: 12/30/21 00:35 Source: patient, RN notes reviewed Mode of arrival: ambulatory Limitations: no limitations - History of Present Illness Initial comments: 26-year-old female presents to the emergency department for evaluation of generalized lower abdominal cramping discomfort accompanied by diffuse lower back pain. States symptoms began yesterday after taking antibiotics prescribed to treat Chlamydia. Did not eat when she took these medicines. Has not taken anything to treat her discomfort. Pain worsens with position change. Denies fever, chills, headache, chest pain, shortness of breath, nausea, vomiting, diarrhea, dysuria, hematuria, vaginal bleeding or leaking of fluids. - Related Data Home Medications Medication Instructions Recorded Confirmed No Known Home Medications 12/31/19 12/31/19 Allergies Allergy/AdvReac Type Severity Reaction Status Date / Time Penicillins Allergy Rash/Hives Verified 12/29/21 23:15 Review of Systems ROS Statement: Those systems with pertinent positive or pertinent negative responses have been documented in the HPI. ROS Other: All systems not noted in ROS Statement are negative. Past Medical History Past Medical History: No Reported History History of Any Multi-Drug Resistant Organisms: None Reported Past Surgical History: Ear Surgery, Tonsillectomy Past Anesthesia/Blood Transfusion Reactions: No Reported Reaction Past Psychological History: ADD/ADHD, Bipolar Smoking Status: Current every day smoker Past Alcohol Use History: Rare Past Drug Use History: None Reported - Past Family History Father Family Medical History: No Reported History General Exam Limitations: no limitations (Well-developed, well-nourished female in no acute distress. Initial temperature 98.2, pulse 87, respiration 16, blood pressure 113/74, pulse ox 100% on room air.) General appearance: alert, in no apparent distress ENT exam: Present: normal exam, normal oropharynx, mucous membranes moist Respiratory exam: Present: normal lung sounds bilaterally. Absent: respiratory distress, wheezes, rales, rhonchi, stridor Cardiovascular Exam: Present: regular rate, normal rhythm, normal heart sounds. Absent: systolic murmur, diastolic murmur, rubs, gallop, clicks GI/Abdominal exam: Present: soft, normal bowel sounds. Absent: distended, tenderness, guarding, rebound, rigid Back exam: Absent: CVA tenderness (R), CVA tenderness (L) Neurological exam: Present: alert, oriented X3, CN II-XII intact Psychiatric exam: Present: normal affect, normal mood Skin exam: Present: warm, dry, intact, normal color. Absent: rash Course Vital Signs 12/29/21 12/30/21 23:15 02:48 Temperature 98.2 F Pulse Rate 87 66 Respiratory 16 14 Rate Blood Pressure 113/74 124/67 O2 Sat by Pulse 100 97 Oximetry - Reevaluation(s) Reevaluation #1: 12/30/21 02:15 heart tones unobtainable per OB staff. Given that patient is having no vaginal bleeding or discharge, has stable vital signs, and is resting comfortably at this time, she will be discharged home to follow up with her OB provider as scheduled. Medical Decision Making - Medical Decision Making This is a 26-year-old female who presents to the emergency department for evaluation of low back pain and mild abdominal cramping, onset last night after taking antibiotic medication. Upon exam, patient is well-appearing and in no acute distress. She is 12 weeks with no vaginal bleeding or discharge. Patient is tolerating oral intake without difficulty. Urinalysis appear somewhat contaminated though was sent for culture. Laboratory studies show mild hyponatremia. OB staff unable to obtain heart tones; patient is scheduled to follow up with her FLASH OVEN OPERATOR for ultrasound this week. Return parameters discussed in detail. Patient verbalizes understanding and agrees with this plan. Attending: Emir. - Lab Data Result diagrams: 12/30/21 01:29 12/30/21 01:29 Lab Results 12/29/21 12/30/21 12/30/21 Range/Units 23:33 01:29 01:29 WBC 9.4 (3.8-10.6) k/uL RBC 4.23 (3.80-5.40) m/uL Hgb 11.9 (11.4-16.0) gm/dL Hct 33.7 L (34.0-46.0) % MCV 79.7 L (80.0-100.0) fL MCH 28.0 (25.0-35.0) pg MCHC 35.2 (31.0-37.0) g/dL RDW 14.7 (11.5-15.5) % Plt Count 186 (150-450) k/uL MPV 9.4 Neutrophils % 62 % Lymphocytes % 28 % Monocytes % 4 % Eosinophils % 3 % Basophils % 0 % Neutrophils # 5.9 (1.3-7.7) k/uL Lymphocytes # 2.6 (1.0-4.8) k/uL Monocytes # 0.4 (0-1.0) k/uL Eosinophils # 0.3 (0-0.7) k/uL Basophils # 0.0 (0-0.2) k/uL Sodium 132 L (137-145) mmol/L Potassium 4.2 (3.5-5.1) mmol/L Chloride 105 (98-107) mmol/L Carbon Dioxide 22 (22-30) mmol/L Anion Gap 5 mmol/L BUN 8 (7-17) mg/dL Creatinine 0.46 L (0.52-1.04) mg/dL Est GFR (CKD-EPI)AfAm >90 (>60 ml/min/1.73 sqM) Est GFR (CKD-EPI)NonAf >90 (>60 ml/min/1.73 sqM) Glucose 107 H (74-99) mg/dL Calcium 8.6 (8.4-10.2) mg/dL Urine Color Yellow Urine Appearance Cloudy H (Clear) Urine pH 5.5 (5.0-8.0) Ur Specific [place] 1.023 (1.001-1.035) Urine Protein Trace H (Negative) Urine Glucose (UA) Negative (Negative) Urine Ketones Negative (Negative) Urine Blood Negative (Negative) Urine Nitrite Negative (Negative) Urine Bilirubin Negative (Negative) Urine Urobilinogen <2.0 (<2.0) mg/dL Ur Leukocyte Esterase Large H (Negative) Urine RBC 2 (0-5) /hpf Urine WBC 9 H (0-5) /hpf Ur Squamous Epith Cells 11 H (0-4) /hpf Calcium Oxalate Crystal Many H (None) /hpf Urine Bacteria Rare H (None) /hpf Urine Mucus Few H (None) /hpf Disposition Clinical Impression: Low back pain, Abdominal cramping Disposition: HOME SELF-CARE Condition: Stable Instructions (If sedation given, give patient instructions): Abdominal Pain in (ED) Additional Instructions: Increase your intake of fluids to maintain adequate hydration. May take Tylenol if needed for discomfort. Follow up with your OB-Leasing Associate as scheduled. Return to the emergency department with any new, worsening, or concerning sympt oms. Is patient prescribed a controlled substance at d/c from ED?: No Referrals: None,Stated [Primary Care Provider] - 1-2 days Isma Cohen FLASH OVEN OPERATOR [Provider Group] - 1-2 days Forms: Work/School Release Time of Disposition: 02:30
[2021-12-30 01:39] LABS: Basophils % (A) 0 %; Eosinophils # (A) 0.3 k/uL (0-0.7); Eosinophils % (A) 3 %; HCT 33.7 % (34.0-46.0); HGB 11.9 gm/dL (11.4-16.0); Lymphocytes # (A) 2.6 k/uL (1.0-4.8); Lymphocytes % (A) 28 %; MCHC 35.2 g/dL (31.0-37.0); MCV 79.7 fL (80.0-100.0); Mean Platelet Volume 9.4; Monocytes # (A) 0.4 k/uL (0-1.0); Monocytes % (A) 4 %; Neutrophils # (A) 5.9 k/uL (1.3-7.7); Neutrophils % (A) 62 %; Platelet Count 186 k/uL (150-450); RBC 4.23 m/uL (3.80-5.40); RDW 14.7 % (11.5-15.5); WBC 9.4 k/uL (3.8-10.6)
[2021-12-30 01:55] LABS: African American GFR (CKD) >90 (>60 ml/min/1.73 sqM); Anion Gap 5 mmol/L; Blood Urea Nitrogen 8 mg/dL (7-17); Calcium 8.6 mg/dL (8.4-10.2); Carbon Dioxide 22 mmol/L (22-30); Chloride 105 mmol/L (98-107); Glucose 107 mg/dL (74-99); Non-African American GFR(CKD) >90 (>60 ml/min/1.73 sqM); Sodium 132 mmol/L (137-145)
[2021-12-30 02:11] LABS: Potassium 4.2 mmol/L (3.5-5.1)
[2021-12-30 02:49] VITALS: BP 124/67; PULSE 66; RESP 14
== END 2021-12-30 02:49 | disposition home or self-care (01) ==
LOC: EC 22:59
DX: O26.891 Other specified pregnancy related conditions, first trimester (principal); F31.9 Bipolar disorder, unspecified; F17.200 Nicotine dependence, unspecified, uncomplicated; Z88.0 Allergy status to penicillin; Z3A.12 12 weeks gestation of pregnancy
CPT/HCPCS: 36415; 80048; 81001; 85025; 87086; 99284

== ENCOUNTER 2022-03-19 13:54 | Outpatient (CLI) | payer OTHER ==
[2022-03-19 14:39] LABS: Amorphous Sediment,Urine Rare /hpf; Appearance,Urine Cloudy (Clear); Bacteria,Urine Rare /hpf; Bilirubin,Urine Negative (Negative); Blood,Urine Negative (Negative); Color,Urine Yellow; Glucose,Urine (UA) Negative (Negative); Ketones,Urine 2+ (Negative); Leukocyte Esterase,Urine Negative (Negative); Mucus,Urine Rare /hpf; Nitrite,Urine Negative (Negative); Protein,Urine Negative (Negative); RBC,Urine 1 /hpf (0-5); Specific Gravity,Urine 1.019 (1.001-1.035); Squamous Epithelial Cell,Urine 2 /hpf (0-4); Urobilinogen,Urine <2.0 mg/dL (<2.0); WBC,Urine 4 /hpf (0-5)
[2022-03-19 15:22] VITALS: BP 124/63; PULSE 102; RESP 16; TEMP 97.9
--- NOTE | 2022-03-20 04:59 | P.MSEPDOC ---
Presenting Problems - Arrival Data Date of Arrival on Unit: 03/19/22 Time of Arrival on Unit: 13:54 Mode of Transport: Ambulatory - Complaint OB-Reason for Admission/Chief Complaint: Pain Comment: Patient came to triage with complaints of constant aching pain in her mid to upper back, mid abdomin and pain in her right arm. rating pain 10/10. Medical History - Information : 2 Para: 1 Term: 1 : 0 Abortions: Spontaneous or Elective: 0 Number of Living Children: 1 - Gestational Age Gestational Age by RICCO (wks/days): 23 Weeks and 5 Days - History Complications: Smoker Review of Systems - Review of Systems Constitutional: No problems Breast: No problems ENT: No problems Cardiovascular: No problems Respiratory: No problems Gastrointestinal: No problems Genitourinary: No problems Musculoskeletal: No problems Neurological: No problems Skin: No problems Vital Signs - Temperature Temperature: 97.9 F Temperature Source: Temporal Artery Scan - Pulse Pulse Oximetery Pulse Rate: 102 Pulse Assessment Method: Pulse Oximetry - Respirations Respiratory Rate: 16 Oxygen Delivery Method: Room Air - Blood Pressure Right Arm Blood Pressure: 124/63 Blood Pressure Mean: 83 Blood Pressure Source: Automatic Cuff Medical Screen Scoring - Assessment - Baby A Heart Rate - NICHD Category: Category I (Normal) Physician Notification - Physician Notified Physician Notified Date: 03/19/22 Physician Notified Time: 15:03 Physician: Quang Santos New Order Received: No Maternal Triage Index - Urgent/Priority 2 Urgent Priority 2: Yes Provider Notified: Quang Santos Provider Notified Time: 15:03 Criteria Met for Priority 2: Patient came to triage with complaints of constant aching pain in her mid to upper back, mid abdomin and pain in her right arm. rating pain 10/10. Disposition - Disposition OB Disposition: Discharge to home Transferred to:: home Discharge Date: 03/19/22 Discharge Time: 15:03 I agree with the RN Medical Screening Exam: Yes Case reviewed; plan agreed upon as documented in EMR&OBIX.: Yes Diagnosis: PAIN, UNSPECIFIED (Patient presents to labor and delivery with non- obstetrical complaints including back pain are and leg pain. heart tones are reassuring is no evidence of compromise. Patient is sent to the emergency department for evaluation for non-obstetrical concerns.)
== END 2022-03-19 15:12 ==
LOC: FBPOP 13:54
PROVIDERS: ATTEND Obstetrics & Gynecology
DX: O26.892 Other specified pregnancy related conditions, second trimester (principal); M54.6 Pain in thoracic spine; Z3A.23 23 weeks gestation of pregnancy; Z87.891 Personal history of nicotine dependence
CPT/HCPCS: 81001; G0463; 99213

== ENCOUNTER 2022-03-19 15:18 | Emergency (ER) | payer OTHER ==
[2022-03-19] MEDS ORDERED: CEPHALEXIN 250 MG CAP PO STA (16:12)
[2022-03-19] MEDS ORDERED: ACETAMINOPHEN TAB 500 MG TAB PO STA (16:30)
[2022-03-19] MEDS ORDERED: SODIUM CHLORIDE 0.9% 1,000 ML IV STA (16:38)
[2022-03-19 16:56] LABS: Basophils % (A) 0 %; Eosinophils # (A) 0.1 k/uL (0-0.7); Eosinophils % (A) 1 %; HCT 33.2 % (34.0-46.0); Lymphocytes # (A) 0.7 k/uL (1.0-4.8); Lymphocytes % (A) 9 %; MCH 26.5 pg (25.0-35.0); MCHC 33.3 g/dL (31.0-37.0); MCV 79.7 fL (80.0-100.0); Mean Platelet Volume 11.4; Monocytes # (A) 0.6 k/uL (0-1.0); Monocytes % (A) 8 %; Neutrophils # (A) 5.8 k/uL (1.3-7.7); Neutrophils % (A) 80 %; Platelet Count 161 k/uL (150-450); RBC 4.16 m/uL (3.80-5.40); RDW 13.9 % (11.5-15.5); WBC 7.2 k/uL (3.8-10.6)
[2022-03-19 17:06] LABS: ALT 15 U/L (4-34); AST 26 U/L (14-36); African American GFR (CKD) >90 (>60 ml/min/1.73 sqM); Albumin 3.8 g/dL (3.5-5.0); Alkaline Phosphatase 88 U/L (38-126); Anion Gap 11 mmol/L; Blood Urea Nitrogen 4 mg/dL (7-17); Carbon Dioxide 19 mmol/L (22-30); Chloride 101 mmol/L (98-107); Glucose 96 mg/dL (74-99); Magnesium 1.5 mg/dL (1.6-2.3); Non-African American GFR(CKD) >90 (>60 ml/min/1.73 sqM); Sodium 131 mmol/L (137-145); Total Bilirubin 0.3 mg/dL (0.2-1.3); Total Protein 6.7 g/dL (6.3-8.2)
--- NOTE | 2022-03-19 17:56 | US ---
EXAMINATION TYPE: US venous doppler duplex LE DATE OF EXAM: 03/19/2022 5:35 PM COMPARISON: NONE CLINICAL HISTORY: pain, . Pain in bilateral legs. No h of DVT. Patient is . SIDE PERFORMED: Bilateral TECHNIQUE: The lower extremity deep venous system is examined utilizing real time linear array sonog meka with graded compression, doppler sonography and color-flow sonography. VESSELS IMAGED: Common Femoral Vein Deep Femoral Vein Greater Saphenous Vein * Femoral Vein Popliteal Vein Small Saphenous Vein * Proximal Calf Veins (* superficial vessels) Right Leg: No evidence of DVT in veins imaged at this time. Duplicate distal popliteal vein noted. Left Leg: No evidence of DVT in veins imaged at this time. IMPRESSION: No evidence of deep vein thrombosis in both legs.
--- NOTE | 2022-03-19 18:11 | ED ---
General Adult HPI - General Chief complaint: Back Pain/Injury Stated complaint: Body aches(23 weeks preg) Time Seen by Provider: 03/19/22 16:03 Source: patient Mode of arrival: ambulatory Limitations: no limitations - History of Present Illness Initial comments: Patient is a 27-year-old A0 female at 23 weeks who presents to the emergency department with a chief complaint of body aches. Patient states symptoms started about 5 AM this morning. States she has pain in both of her legs that radiates up her body. She denies history of DVT and PE. Denies chest pain and shortness of breath. Reports dry cough. Denies fever, chills, abdomi nal pain, and vaginal bleeding. Patient was evaluated today on the labor and delivery floor. States heart tones were normal and she was sent down to the emergency department for further evaluation. - Related Data Home Medications Medication Instructions Recorded Confirmed Acetaminophen Tab [Tylenol Tab] 1,000 mg PO Q6HR 03/19/22 03/19/22 Vit No.179/Iron/Folic 1 each PO DAILY 03/19/22 03/19/22 [ Tablet] Allergies Allergy/AdvReac Type Severity Reaction Status Date / Time Penicillins Allergy Rash/Hives Verified 03/19/22 15:43 Review of Systems ROS Statement: Those systems with pertinent positive or pertinent negative responses have been documented in the HPI. ROS Other: All systems not noted in ROS Statement are negative. Past Medical History Past Medical History: No Reported History, Seizure Disorder History of Any Multi-Drug Resistant Organisms: None Reported Past Surgical History: Ear Surgery, Tonsillectomy Past Anesthesia/Blood Transfusion Reactions: No Reported Reaction Past Psychological History: ADD/ADHD, Bipolar Smoking Status: Current every day smoker Past Alcohol Use History: None Reported Past Drug Use History: None Reported - Past Family History Father Family Medical History: No Reported History General Exam Limitations: no limitations General appearance: alert Head exam: Present: atraumatic, normocephalic, normal inspection Respiratory exam: Present: normal lung sounds bilaterally. Absent: respiratory distress, wheezes, rales, rhonchi, stridor Cardiovascular Exam: Present: regular rate, normal rhythm, normal heart sounds. Absent: systolic murmur, diastolic murmur, rubs, gallop, clicks GI/Abdominal exam: Present: soft, normal bowel sounds. Absent: distended, tenderness, guarding, rebound, rigid Extremities exam: Present: normal inspection, full ROM, normal capillary refill. Absent: joint swelling, calf tenderness Neurological exam: Present: alert, oriented X3, CN II-XII intact Psychiatric exam: Present: normal affect, normal mood Skin exam: Present: warm, dry, intact, normal color. Absent: rash Course Vital Signs 03/19/22 03/19/22 15:41 18:19 Temperature 98.4 F 98.8 F Pulse Rate 107 H 104 H Respiratory 16 18 Rate Blood Pressure 106/65 133/90 O2 Sat by Pulse 98 95 Oximetry Medical Decision Making - Medical Decision Making This is a 27-year-old female who presents with body aches and bilateral leg pain. There is no calf tenderness. COVID-19 is detected. Ultrasound with Doppler of the bilateral lower ex tremities is negative for DVT. Results discussed with patient. Patient was offered inpatient antibiotic treatment and declined. Was given Tylenol in the emergency department and states that helped her pain significantly. Patient will be discharged with quarantine instructions. Return parameters discussed. Dr. Karimi is my attending. - Lab Data Result diagrams: 03/19/22 16:40 03/19/22 16:40 Lab Results 03/19/22 03/19/22 03/19/22 Range/Units 16:40 16:40 16:40 WBC 7.2 (3.8-10.6) k/uL RBC 4.16 (3.80-5.40) m/uL Hgb 11.0 L (11.4-16.0) gm/dL Hct 33.2 L (34.0-46.0) % MCV 79.7 L (80.0-100.0) fL MCH 26.5 (25.0-35.0) pg MCHC 33.3 (31.0-37.0) g/dL RDW 13.9 (11.5-15.5) % Plt Count 161 (150-450) k/uL MPV 11.4 Neutrophils % 80 % Lymphocytes % 9 % Monocytes % 8 % Eosinophils % 1 % Basophils % 0 % Neutrophils # 5.8 (1.3-7.7) k/uL Lymphocytes # 0.7 L (1.0-4.8) k/uL Monocytes # 0.6 (0-1.0) k/uL Eosinophils # 0.1 (0-0.7) k/uL Basophils # 0.0 (0-0.2) k/uL Sodium (137-145) mmol/L Potassium (3.5-5.1) mmol/L Chloride (98-107) mmol/L Carbon Dioxide (22-30) mmol/L Anion Gap mmol/L BUN (7-17) mg/dL Creatinine (0.52-1.04) mg/dL Est GFR (CKD-EPI)AfAm (>60 ml/min/1.73 sqM) Est GFR (CKD-EPI)NonAf (>60 ml/min/1.73 sqM) Glucose (74-99) mg/dL Calcium (8.4-10.2) mg/dL Magnesium (1.6-2.3) mg/dL Total Bilirubin (0.2-1.3) mg/dL AST (14-36) U/L ALT (4-34) U/L Alkaline Phosphatase (38-126) U/L Total Protein (6.3-8.2) g/dL Albumin (3.5-5.0) g/dL Coronavirus (PCR) Detected A (Not Detectd) Influenza Type A RNA Not Detected (Not Detectd) Influenza Type B (PCR) Not Detected (Not Detectd) 03/19/22 Range/Units 16:40 WBC (3.8-10.6) k/uL RBC (3.80-5.40) m/uL Hgb (11.4-16.0) gm/dL Hct (34.0-46.0) % MCV (80.0-100.0) fL MCH (25.0-35.0) pg MCHC (31.0-37.0) g/dL RDW (11.5-15.5) % Plt Count (150-450) k/uL MPV Neutrophils % % Lymphocytes % % Monocytes % % Eosinophils % % Basophils % % Neutrophils # (1.3-7.7) k/uL Lymphocytes # (1.0-4.8) k/uL Monocytes # (0-1.0) k/uL Eosinophils # (0-0.7) k/uL Basophils # (0-0.2) k/uL Sodium 131 L (137-145) mmol/L Potassium 4.0 (3.5-5.1) mmol/L Chloride 101 (98-107) mmol/L Carbon Dioxide 19 L (22-30) mmol/L Anion Gap 11 mmol/L BUN 4 L (7-17) mg/dL Creatinine 0.44 L (0.52-1.04) mg/dL Est GFR (CKD-EPI)AfAm >90 (>60 ml/min/1.73 sqM) Est GFR (CKD-EPI)NonAf >90 (>60 ml/min/1.73 sqM) Glucose 96 (74-99) mg/dL Calcium 9.0 (8.4-10.2) mg/dL Magnesium 1.5 L (1.6-2.3) mg/dL Total Bilirubin 0.3 (0.2-1.3) mg/dL AST 26 (14-36) U/L ALT 15 (4-34) U/L Alkaline Phosphatase 88 (38-126) U/L Total Protein 6.7 (6.3-8.2) g/dL Albumin 3.8 (3.5-5.0) g/dL Coronavirus (PCR) (Not Detectd) Influenza Type A RNA (Not Detectd) Influenza Type B (PCR) (Not Detectd) Disposition Clinical Impression: COVID-19, Body aches, Leg pain Disposition: HOME SELF-CARE Condition: Good Instructions (If sedation given, give patient instructions): Coronavirus Disease 2019 (COVID-19) Additional Instructions: Take Tylenol for pain. Quarantine for 5 days. Follow-up with primary care pr ovider in one to 2 days. Return to the emergency department if you experience new, concerning, or worsening symptoms. Is patient prescribed a controlled substance at d/c from ED?: No Referrals: Quang Santos MD [Primary Care Provider] - 1-2 days Time of Disposition: 18:11
[2022-03-19 18:21] VITALS: BP 133/90; PULSE 104; RESP 18; TEMP 98.8
== END 2022-03-19 18:20 | disposition home or self-care (01) ==
LOC: EC 15:18
DX: O98.513 Other viral diseases complicating pregnancy, third trimester (principal); U07.1 COVID-19; Z3A.23 23 weeks gestation of pregnancy; Z88.0 Allergy status to penicillin; F17.200 Nicotine dependence, unspecified, uncomplicated
CPT/HCPCS: 36415; 80053; 83735; 85025; 87502; 87635; 93970; 96360; 99283

== ENCOUNTER 2022-06-08 16:57 | Outpatient (CLI) | payer OTHER ==
[2022-06-08] MEDS: LACTATED RINGERS 1,000 ML IV SCH ×2 (18:00→19:30)
[2022-06-08 18:25] LABS: Appearance,Urine Clear (Clear); Bilirubin,Urine Negative (Negative); Blood,Urine Negative (Negative); Color,Urine Yellow; Glucose,Urine (UA) Negative (Negative); Leukocyte Esterase,Urine Negative (Negative); Nitrite,Urine Negative (Negative); PH, Urine 6.5 (5.0-8.0); Protein,Urine Trace (Negative); Specific Gravity,Urine 1.022 (1.001-1.035); Urobilinogen,Urine <2.0 mg/dL (<2.0)
[2022-06-08 18:26] LABS: HCT 27.4 % (34.0-46.0); HGB 9.4 gm/dL (11.4-16.0); Hypochromasia Slight; MCHC 34.3 g/dL (31.0-37.0); MCV 72.8 fL (80.0-100.0); Microcytosis Slight; Platelet Count 159 k/uL (150-450); RBC 3.77 m/uL (3.80-5.40); RDW 13.8 % (11.5-15.5); WBC 11.6 k/uL (3.8-10.6)
[2022-06-08 18:33] LABS: Ketones,Urine 3+ (Negative)
[2022-06-08 19:23] LABS: Large Platelets Present
[2022-06-08 19:27] LABS: Band Neutrophils % 3 %; Eosinophils # (M) 0.23 k/uL (0-0.7); Lymphocytes # (M) 0.35 k/uL (1.0-4.8); Monocytes # (M) 1.04 k/uL (0-1.0); Neutrophils % (M) 83 %; Nucleated Red Blood Cells 0 /100 WBC (0-0); Total Cells Counted 100
[2022-06-08] MEDS ORDERED: ACETAMINOPHEN IV (For NPO) 1,000 MG in EMPTY BAG 1 BAG IVPB ONE (19:47)
[2022-06-08] MEDS ORDERED: OSELTAMIVIR 75 MG CAP PO SCH (21:00)
[2022-06-08 21:17] VITALS: BP 115/56; PULSE 125; RESP 16; TEMP 99.5
--- NOTE | 2022-06-11 09:15 | P.MSEPDOC ---
Presenting Problems - Arrival Data Date of Arrival on Unit: 06/08/22 Time of Arrival on Unit: 16:57 Mode of Transport: Wheelchair - Complaint OB-Reason for Admission/Chief Complaint: Pain, NST Comment: Katherine Irving RN spoke with Dr. Zarco on patients arrival regarding patient arrival complaint. RN spoke with Dr. Zarco patient will receive one dose of Tamiflu for influenza. A, and will have another dose to take at home. Dr. Zarco will send an electronic script. to [facility]. Medical History - Information : 2 Para: 1 Term: 1 : 0 Abortions: Spontaneous or Elective: 0 Number of Living Children: 1 - Gestational Age Gestational Age by RICCO (wks/days): 35 Weeks and 2 Days - History Comment: denies any complications. Patient is to take 1 dose of Tamiflu in triage, 1 more liter of LR and will be. discharged to home. Patient is to follow up with OB scheduled date. Patient educated. to stay hydrated and record kick counts. Patient educated by RN when to return to. triage or call siphoner OB. Review of Systems - Review of Systems Constitutional: No problems Breast: No problems ENT: No problems Cardiovascular: No problems Respiratory: No problems Gastrointestinal: No problems Genitourinary: No problems Musculoskeletal: No problems Neurological: No problems Skin: No problems Comment: Patient has a non productive cough and tested + for influenza A. Vital Signs - Temperature Temperature: 99.5 F Temperature Source: Oral - Pulse Pulse Oximetery Pulse Rate: 125 Pulse Assessment Method: Auscultation - Respirations Respiratory Rate: 16 Oxygen Delivery Method: Room Air - Blood Pressure Right Arm Blood Pressure: 115/56 Blood Pressure Mean: 75 Blood Pressure Source: Automatic Cuff Medical Screen Scoring - Assessment - Baby A Baseline FHR: 150 Heart Rate - NICHD Category: Category I (Normal) NST: Reactive Physician Notification - Physician Notified Physician Notified Date: 06/08/22 Physician Notified Time: 17:39 Physician: Alis Zraco Order Received: Yes - Notification Comment Comment: Michoacano Murphy RN [id number] orer for 1 liter. fluid hydration, CBC FLU swab covid and urinalysis. 2018 Karthik Holt RN spoke with Dr. Zarco Patient is to take 1 dose of Tamiflu in triage, 1 more liter of LR and will be. discharged to home. Patient is to follow up with OB scheduled date. Patient educated. to stay hydrated and record kick counts. Patient educated by RN when to return to. triage or call siphoner OB. Dr. Zarco patient positive for influenza A Maternal Triage Index - Urgent/Priority 2 Criteria Met for Priority 2: Patient is to take 1 dose of Tamiflu in triage, 1 more liter of LR and will be. discharged to home. Patient is to follow up with OB scheduled date. Patient educated. to stay hydrated and record kick counts. Patient educated by RN when to return to. triage or call siphoner OB. - Non-Urgent/Priority 4 Non-Urgent Priority 4: Yes Criteria Met for Priority 4: Patient is to take 1 dose of Tamiflu in triage, 1 more liter of LR and will be. discharged to home. Patient is to follow up with OB scheduled date. Patient educated. to stay hydrated and record kick counts. Patient educated by RN when to return to. triage or call siphoner OB.RN spoke with Dr. Zarco patient will receive one dose of Tamiflu for influenza. A, and will have another dose to take at home. Dr. Zarco will send an electronic script. to [facility]. Disposition - Disposition OB Disposition: Triage Discharge Date: 06/08/22 Discharge Time: 20:35 I agree with the RN Medical Screening Exam: Yes Case reviewed; plan agreed upon as documented in EMR&OBIX.: Yes Diagnosis: INFLUENZA DUE TO IDENT NOVEL INFLUENZA A VIRUS W GI MANIFEST
== END 2022-06-08 20:35 | disposition home or self-care (01) ==
LOC: FBPOP 16:57
PROVIDERS: ATTEND Obstetrics & Gynecology
DX: O26.893 Other specified pregnancy related conditions, third trimester (principal); Z3A.35 35 weeks gestation of pregnancy; Z88.0 Allergy status to penicillin; F17.200 Nicotine dependence, unspecified, uncomplicated; J09.X3 Influenza due to identified novel influenza A virus with gastrointestinal manifestations
CPT/HCPCS: 59025; 96361; 96367; 96374; 85025; 81003; 87636; G0463; J0131; 99213

== ENCOUNTER 2022-07-10 08:49 | Inpatient (IN) | payer OTHER ==
[2022-07-10] MEDS ORDERED: LIDOCAINE 0.5% (PF) 5 MG/ML (50 ML SDV) SQ PRN (09:59)
[2022-07-10] MEDS ORDERED: TERBUTALINE 1 MG/ML VIAL SQ PRN (09:59)
[2022-07-10] MEDS ORDERED: OXYTOCIN 30 UNITS/500 ML NS 30 UNIT in SALINE 1 500ML.BAG IV SCH ×2 (10:00→22:15)
[2022-07-10 10:36] LABS: Anisocytosis Slight; Basophils % (A) 0 %; Eosinophils # (A) 0.2 k/uL (0-0.7); Eosinophils % (A) 2 %; HCT 29.3 % (34.0-46.0); HGB 9.4 gm/dL (11.4-16.0); Hypochromasia Slight; Lymphocytes # (A) 2.5 k/uL (1.0-4.8); Lymphocytes % (A) 20 %; MCH 22.8 pg (25.0-35.0); MCHC 32.1 g/dL (31.0-37.0); MCV 71.1 fL (80.0-100.0); Mean Platelet Volume 11.7; Microcytosis Moderate; Monocytes # (A) 0.5 k/uL (0-1.0); Monocytes % (A) 4 %; Neutrophils # (A) 8.9 k/uL (1.3-7.7); Neutrophils % (A) 71 %; Platelet Count 145 k/uL (150-450); Poikilocytosis Slight; RBC 4.13 m/uL (3.80-5.40); RDW 16.5 % (11.5-15.5); WBC 12.6 k/uL (3.8-10.6)
[2022-07-10] MEDS: LACTATED RINGERS 1,000 ML IV SCH ×2 (18:01→22:43)
[2022-07-10] MEDS ORDERED: SODIUM CHLORIDE 0.9% 100 ML BAG ONE (21:30)
[2022-07-10] MEDS ORDERED: MIDAZOLAM 2 MG/2 ML VIAL ONE (21:30)
[2022-07-10] MEDS ORDERED: HYDROmorphone (PF) 1 MG/ML ONE (21:30)
[2022-07-10] MEDS ORDERED: SUCCINYLCHOLINE CHLORIDE 200 MG/10 ML VIAL IV ONE (21:30)
[2022-07-10] MEDS ORDERED: PHENYLEPHRINE-0.9% NACL SYG 1,000 MCG/10 ML SYRINGE ONE (21:30)
[2022-07-10] MEDS ORDERED: ceFAZolin 1,000 MG VIAL ONE (21:30)
[2022-07-10] MEDS ORDERED: ePHEDrine 50 MG/ML 1 ML VIAL ONE (21:30)
[2022-07-10] MEDS ORDERED: PROPOFOL 10 MG/ML 20 ML VIAL IV ONE (21:30)
[2022-07-10] MEDS ORDERED: OXYTOCIN 30 UNITS/500 ML NS BAG IV ONE (21:30)
[2022-07-10] MEDS ORDERED: fentaNYL (PF) 50 MCG/ML 2 ML AMP ONE (21:30)
[2022-07-10] MEDS ORDERED: diphenhydrAMINE 50 MG/ML 1 ML VIAL IVP PRN ×2 (22:12)
[2022-07-10] MEDS ORDERED: diphenhydrAMINE 50 MG CAP PO PRN (22:12)
[2022-07-10] MEDS ORDERED: NALOXONE 0.4 MG/ML 1 ML VIAL IV PRN ×2 (22:12→22:17)
[2022-07-10] MEDS ORDERED: LANOLIN CREAM 5 GM TUBE TOPICAL PRN (22:12)
[2022-07-10] MEDS ORDERED: METOCLOPRAMIDE 5 MG/ML 2 ML VIAL IVP PRN (22:12)
[2022-07-10] MEDS ORDERED: diphenhydrAMINE 25 MG CAP PO PRN (22:12)
[2022-07-10] MEDS ORDERED: ZOLPIDEM 5 MG TAB PO PRN (22:12)
[2022-07-10] MEDS ORDERED: ONDANSETRON 4 MG/2 ML VIAL IVP PRN (22:12)
[2022-07-10] MEDS ORDERED: SIMETHICONE 80 MG CHEWABLE PO PRN (22:12)
[2022-07-10] MEDS ORDERED: HYDROmorphone PCA 10 MG/50 ML BAG IV PRN (22:17)
--- NOTE | 2022-07-10 22:24 | P.HPOB ---
History of Present Illness H&P Date: 07/10/22 Chief Complaint: induction of labor 27 year old presents at 39 weeks 6 days for induction of labor. Her cervix is 1-2/70/-2. She is lulu irregularly. heart tones 135 with moderate variability and reactive. Review of Systems All systems: negative Constitutional: Denies chills, Denies fever Eyes: denies blurred vision, denies pain Ears, nose, mouth and throat: Denies headache, Denies sore throat Cardiovascular: Denies chest pain, Denies shortness of breath Respiratory: Denies cough Gastrointestinal: Denies abdominal pain, Denies diarrhea, Denies nausea, Denies vomiting Genitourinary: Denies dysuria, Denies hematuria Musculoskeletal: Denies myalgias Integumentary: Denies pruritus, Denies rash Neurological: Denies numbness, Denies weakness Psychiatric: Denies anxiety, Denies depression Endocrine: Denies fatigue, Denies weight change Past Medical History Past Medical History: No Reported History, Seizure Disorder History of Any Multi-Drug Resistant Organisms: None Reported Past Surgical History: Ear Surgery, Tonsillectomy Past Anesthesia/Blood Transfusion Reactions: No Reported Reaction Past Psychological History: ADD/ADHD, Bipolar Smoking Status: Current every day smoker Past Alcohol Use History: None Reported Past Drug Use History: None Reported - Past Family History Father Family Medical History: No Reported History Medications and Allergies Home Medications Medication Instructions Recorded Confirmed Type Oseltamivir Phosphate 75 mg PO BID #9 capsule 06/08/22 Rx Allergies Allergy/AdvReac Type Severity Reaction Status Date / Time Penicillins Allergy Rash/Hives Verified 06/08/22 17:56 Exam Osteopathic Statement: *. No significant issues noted on an osteopathic structural exam other than those noted in the History and Physical/Consult. Vital Signs Temp Pulse Resp BP 07/10/22 09:49 97.2 F L 100 16 120/76 Intake and Output 07/10/22 07/10/22 07/10/22 06:59 14:59 22:59 Intake Total 800 Balance 800 Intake: IV 500 Oral 300 Other: # Voids 3 Weight 105.233 kg Heart: Regular rate and rhythm Lungs: Clear to auscultation bilaterally Abdomen: Soft, nontender Extremities: Negative Homans sign Results Result Diagrams: 07/10/22 09:30 Abnormal Lab Results - Last 24 Hours (Table) 07/10/22 Range/Units 09:30 WBC 12.6 H (3.8-10.6) k/uL Hgb 9.4 L (11.4-16.0) gm/dL Hct 29.3 L (34.0-46.0) % MCV 71.1 L (80.0-100.0) fL MCH 22.8 L (25.0-35.0) pg RDW 16.5 H (11.5-15.5) % Plt Count 145 L (150-450) k/uL Neutrophils # 8.9 H (1.3-7.7) k/uL Assessment and Plan (1) Encounter for induction of labor Current Visit: Yes Status: Acute Code(s): Z34.90 - ENCNTR FOR SUPRVSN OF NORMAL , UNSP, UNSP TRIMESTER SNOMED Code(s): 348461174 Plan: 1. induction of labor with amniotomy and pitocin 2. anticipate normal vaginal delivery
--- NOTE | 2022-07-10 22:47 | P.OP ---
Date of Procedure: 07/10/22 Preoperative Diagnosis: 1. at 39 weeks 6 days 2. cord prolapse 3. category 3 heart tones. Postoperative Diagnosis: 1. at 39 weeks 6 days 2. cord prolapse 3. category 3 heart tones. Procedure(s) Performed: primary low transverse Anesthesia: TIMMY Surgeon: Sania Amos Directory Assistance Operator #1: Kitty Pérez Estimated Blood Loss (ml): 800 IV fluids (ml): 600 Urine output (ml): 200 Pathology: none sent Condition: stable Disposition: floor Indications for Procedure: 27 year old presented at 39 weeks and 6 days for induction of labor. Her cervix was 1-2 cm dilated 70% effaced, -2 station. She was lulu irregular. heart tones 135 with moderate variability. Amniotomy was performed and Pitocin augmentation was started. Took a while for her to get uncomfortable. She was still 2 cm at 9 PM and the RN called me to bedside complaining of a hand presentation and a previous four-minute deceleration. heart tones were moderate variability at this point and 135 baseline. When I checked this patient's cervix I noted a cord prolapse and the hand presentation as well. The emergency section was called patient was taken to the operating room. She explained the situation to her and her probably repeat her for surgery. Operative Findings: Viable female, 1 at 1 minute, 7 at 5 minutes and 9 at 10 minutes. weight 8#5oz Description of Procedure: Patient is taken the operating room where general anesthesia obtained without difficulty she is prepped draped in normal sterile fashion in dorsal supine position with a leftward tilt. Significant airway was established of a Pfannenstiel incision was made the scalpel carried through to the underlying layer fascia with the scalpel. Fascia was incised in midline and carried bilaterally with the Donahue scissors. Superior aspect the fascial incision was grasped Julian clamps elevated and the underlying rectus muscles dissected off with the Mayos. Attention was then turned to the inferior aspect of same incision which in a similar fashion was grasped tented up and the underlying rectus muscles dissected off with the Mayos. The rectus muscles were in the midline and the peritoneum was identified tented up and entered sharply with scalpel. Incision was extended bluntly. Bladder blade was inserted and a low transverse incision was made on the uterus at the scalpel. Incision was extended bilaterally in a digital manner. Infant's head delivered atraumatically along with rest of body and infant handed off to waiting nurses. Apgars 1 and 1 minute, 7 at 5 minutes, 9 at 10 minutes. Weight 8 lbs. 5 oz. Placenta delivered manually intact with three-vessel cord. The uterus was exteriorized and cleared of all clots and debris. The uterine incision was then closed with 0 Vicryl in a running locked fashion. Second layer of the same suture is used in imbricating fashion to obtain excellent hemostasis. The uterus, tubes, ovaries appeared normal. The uterus was placed back into the abdomen. Peritoneum was reapproximated with 2-0 Vicryl in a running fashion. The fascia was reapproximated with 0 Vicryl in running fashion. The subcutaneous tissue was closed with 3-0 Vicryl in a running fashion and skin was closed vadim. Patient tolerated the procedure well. Sponges and instruments were not counted prior to the so an x-ray was performed. The count did match what we usually have on the field. Patient was taken to her room in stable condition.
--- NOTE | 2022-07-10 22:47 | XR ---
EXAMINATION TYPE: XR abdomen 1V DATE OF EXAM: 07/10/2022 COMPARISON: NONE HISTORY: Sponge count TECHNIQUE: 2 views supine FINDINGS: There is no sign of intestinal obstruction or pneumoperitoneum. Fecal pattern is normal. No evidence of a foreign body in the abdomen. There are skin vadim over the lower anterior abdomen. IMPRESSION: Nonacute abdomen. No evidence of retained foreign body.
[2022-07-11] MEDS: KETOROLAC 15 MG/ML 1 ML VIAL IVP SCH ×3 (03:53→16:13)
[2022-07-11] MEDS: LACTATED RINGERS 1,000 ML IV SCH ×3 (05:20→20:42)
[2022-07-11] MEDS: IBUPROFEN 600 MG TAB PO SCH ×4 (05:21→22:37)
[2022-07-11] MEDS: ACETAMINOPHEN TAB 500 MG TAB PO SCH ×4 (05:22→20:42)
[2022-07-11 05:50] LABS: Anisocytosis Slight; Basophils % (A) 0 %; Eosinophils # (A) 0.1 k/uL (0-0.7); Eosinophils % (A) 0 %; Hypochromasia Slight; Lymphocytes # (A) 1.6 k/uL (1.0-4.8); Lymphocytes % (A) 10 %; MCH 22.7 pg (25.0-35.0); MCHC 32.4 g/dL (31.0-37.0); MCV 69.9 fL (80.0-100.0); Mean Platelet Volume 11.6; Microcytosis Marked; Monocytes # (A) 0.6 k/uL (0-1.0); Monocytes % (A) 4 %; Neutrophils # (A) 13.8 k/uL (1.3-7.7); Neutrophils % (A) 85 %; Poikilocytosis Slight; RBC 3.43 m/uL (3.80-5.40); RDW 16.2 % (11.5-15.5); WBC 16.3 k/uL (3.8-10.6)
[2022-07-11 06:13] LABS: HGB 7.8 gm/dL (11.4-16.0); Platelet Count 99 k/uL (150-450)
--- NOTE | 2022-07-11 09:09 | P.PNOBGPC ---
Subjective - Subjective Principal diagnosis: Status post primary low transverse postop day 1 Interval history: Reason seen and examined. Denies nausea, vomiting, chest pain, shortness breath or any calf pain Patient reports: Reports appetite normal, Reports voiding normally, Reports pain well controlled, Reports ambulating normally : doing well Objective - Vital Signs Latest vital signs: Vital Signs Temp Pulse Resp BP Pulse Ox 07/11/22 07:50 98.3 F 98 16 113/70 98 07/11/22 04:00 98.9 F 99 18 119/66 96 07/11/22 00:30 98.2 F 96 16 125/59 98 07/11/22 00:00 90 16 07/10/22 23:45 90 16 144/85 96 07/10/22 23:30 86 16 139/76 94 L 07/10/22 23:00 98.8 F 86 15 141/70 96 07/10/22 22:45 98.8 F 88 15 140/75 88 L 07/10/22 22:30 88 16 147/82 96 07/10/22 22:17 95 07/10/22 09:49 97.2 F L 100 16 120/76 Intake and Output 07/10/22 07/11/22 07/11/22 22:59 06:59 14:59 Intake Total 480 Output Total 200 1360 Balance -200 -880 Intake: Oral 480 Output: Urine 200 500 Uretheral (Lyons) 300 Estimated Blood Loss 860 Other: Voiding Method Indwelling Catheter Indwelling Catheter # Voids 3 - Exam Lungs: bilateral: normal Chest: Normal S1, Normal S2 Extremities: Present: normal Abdomen: Present: normal appearance, soft. Absent: distention, tenderness Incision: Present: normal, dry, intact Uterus: Present: normal, firm - Labs Labs: Abnormal Lab Results - Last 24 Hours (Table) 07/10/22 07/11/22 Range/Units 09:30 05:28 WBC 12.6 H 16.3 H (3.8-10.6) k/uL RBC 3.43 L (3.80-5.40) m/uL Hgb 9.4 L 7.8 L D (11.4-16.0) gm/dL Hct 29.3 L 24.0 L (34.0-46.0) % MCV 71.1 L 69.9 L (80.0-100.0) fL MCH 22.8 L 22.7 L (25.0-35.0) pg RDW 16.5 H 16.2 H (11.5-15.5) % Plt Count 145 L 99 L (150-450) k/uL Neutrophils # 8.9 H 13.8 H (1.3-7.7) k/uL Assessment and Plan (1) Encounter for induction of labor Current Visit: Yes Status: Resolved Code(s): Z34.90 - ENCNTR FOR SUPRVSN OF NORMAL , UNSP, UNSP TRIMESTER SNOMED Code(s): 554566711 (2) Status post primary low transverse section Current Visit: Yes Status: Acute Code(s): Z98.891 - HISTORY OF UTERINE SCAR FROM PREVIOUS SURGERY SNOMED Code(s): 842150499 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 increase ambulation 3. advance diet
[2022-07-11] MEDS: SENNOSIDES-DOCUSATE SODIUM 1 EACH TAB PO SCH ×2 (09:41→20:42)
[2022-07-12] MEDS: ACETAMINOPHEN TAB 500 MG TAB PO SCH ×3 (01:46→13:38)
[2022-07-12] MEDS: IBUPROFEN 600 MG TAB PO SCH ×4 (04:47→21:55)
--- NOTE | 2022-07-12 05:52 | P.PNOBGPC ---
Subjective - Subjective Patient reports: Reports appetite normal, Reports voiding normally, Reports pain well controlled, Reports ambulating normally : doing well Objective - Vital Signs Latest vital signs: Vital Signs Temp Pulse Resp BP Pulse Ox 07/12/22 00:00 98.4 F 96 14 123/70 96 07/11/22 20:00 98.0 F 94 16 111/68 97 07/11/22 16:00 98.0 F 91 16 105/67 97 07/11/22 12:00 97.6 F 96 16 111/63 97 07/11/22 07:50 98.3 F 98 16 113/70 98 Intake and Output 07/11/22 07/11/22 07/12/22 14:59 22:59 06:59 Output Total 450 Balance -450 Output: Urine 450 Other: # Voids 1 3 1 - Exam Lungs: bilateral: normal Chest: Normal S1, Normal S2 Extremities: Present: normal Abdomen: Present: normal appearance, soft. Absent: distention, tenderness Incision: Present: normal, dry, intact Uterus: Present: normal, firm - Labs Labs: Abnormal Lab Results - Last 24 Hours (Table) 07/11/22 Range/Units 05:28 WBC 16.3 H (3.8-10.6) k/uL RBC 3.43 L (3.80-5.40) m/uL Hgb 7.8 L D (11.4-16.0) gm/dL Hct 24.0 L (34.0-46.0) % MCV 69.9 L (80.0-100.0) fL MCH 22.7 L (25.0-35.0) pg RDW 16.2 H (11.5-15.5) % Plt Count 99 L (150-450) k/uL Neutrophils # 13.8 H (1.3-7.7) k/uL Assessment and Plan Assessment: Post operative day #2. Patient is having some discomfort but otherwise feeling okay. Vital signs are stable she's afebrile. Her incision is intact and dry, she has some mild erythema at the incision but this appears to be just a re action from the bandage. Hemoglobin yesterday was 7.8. Plan today is to begin iron therapy, we'll repeat her CBC, continue postoperative care, most likely discharge home tomorrow morning. (1) Status post primary low transverse section Current Visit: Yes Status: Acute Code(s): Z98.891 - HISTORY OF UTERINE SCAR FROM PREVIOUS SURGERY SNOMED Code(s): 314739191
[2022-07-12 07:14] LABS: Anisocytosis Slight; Basophils % (A) 0 %; Eosinophils # (A) 0.1 k/uL (0-0.7); Eosinophils % (A) 1 %; HCT 24.4 % (34.0-46.0); HGB 7.5 gm/dL (11.4-16.0); Hypochromasia Slight; Lymphocytes # (A) 1.7 k/uL (1.0-4.8); Lymphocytes % (A) 11 %; MCH 21.9 pg (25.0-35.0); MCHC 30.6 g/dL (31.0-37.0); MCV 71.8 fL (80.0-100.0); Mean Platelet Volume 11.4; Microcytosis Moderate; Monocytes # (A) 0.6 k/uL (0-1.0); Monocytes % (A) 4 %; Neutrophils # (A) 12.9 k/uL (1.3-7.7); Neutrophils % (A) 82 %; Poikilocytosis Slight; RDW 16.7 % (11.5-15.5); WBC 15.7 k/uL (3.8-10.6)
[2022-07-12 07:16] LABS: Platelet Count 155 k/uL (150-450)
[2022-07-12] MEDS: SENNOSIDES-DOCUSATE SODIUM 1 EACH TAB PO SCH ×2 (07:42→19:36)
[2022-07-12] MEDS: FERROUS SULFATE 325 MG TAB PO SCH ×2 (07:44→16:49)
[2022-07-13] MEDS: ACETAMINOPHEN TAB 500 MG TAB PO SCH ×3 (01:04→09:01)
[2022-07-13] MEDS: IBUPROFEN 600 MG TAB PO SCH (04:16)
--- NOTE | 2022-07-13 06:32 | P.PNOBGPC ---
Subjective - Subjective Patient reports: Reports appetite normal, Reports voiding normally, Reports pain well controlled, Reports ambulating normally : doing well Objective - Vital Signs Latest vital signs: Vital Signs Temp Pulse Resp BP Pulse Ox 07/13/22 00:00 98.5 F 106 H 16 128/76 07/12/22 19:46 98.8 F 96 16 132/83 07/12/22 15:40 98.1 F 97 18 125/84 99 07/12/22 08:00 98.3 F 94 16 131/64 98 Intake and Output 07/12/22 07/12/22 07/13/22 14:59 22:59 06:59 Other: # Voids 1 - Exam Lungs: bilateral: normal Chest: Normal S1, Normal S2 Extremities: Present: normal Abdomen: Present: normal appearance, soft. Absent: distention, tenderness Incision: Present: normal, dry, intact Uterus: Present: normal, firm - Labs Labs: Abnormal Lab Results - Last 24 Hours (Table) 07/12/22 Range/Units 06:12 WBC 15.7 H (3.8-10.6) k/uL RBC 3.40 L (3.80-5.40) m/uL Hgb 7.5 L (11.4-16.0) gm/dL Hct 24.4 L (34.0-46.0) % MCV 71.8 L (80.0-100.0) fL MCH 21.9 L (25.0-35.0) pg MCHC 30.6 L (31.0-37.0) g/dL RDW 16.7 H (11.5-15.5) % Neutrophils # 12.9 H (1.3-7.7) k/uL Assessment and Plan Assessment: Postoperative day #3. Patient is resting without new complaints and wishes to go home. Vital signs are stable she is afebrile. Uterus is firm nontender. Her incision is intact and dry. The incision does have some mild erythema however this is unchanged from yesterday and does not appear to be infectious in etiology. Her white blood cell count was 15 yesterday so therefore I am going to repeat CBC today. If her CBC looks good will let her go home and follow-up with Dr. Amos in 1 week. Otherwise will continue routine care at this time. (1) Status post primary low transverse section Current Visit: Yes Status: Acute Code(s): Z98.891 - HISTORY OF UTERINE SCAR FROM PREVIOUS SURGERY SNOMED Code(s): 745052670
--- NOTE | 2022-07-13 06:40 | P.DS ---
Providers Date of admission: 07/10/22 08:49 Expected date of discharge: 07/13/22 Attending physician: Sania Amos Primary care physician: Stated None - Discharge Diagnosis(es) (1) Status post primary low transverse section Current Visit: Yes Status: Acute Hospital Course: Please see dictated H&P and operative note per Dr. Amos on this patient's admission. In brief summary this is a 27-year-old 2 para 1 female who is admitted for induction of labor on 07/10/2022. Patient subsequently had a cord prolapse and underwent a emergent low transverse section for a viable female . Please see dictated operative note. Postoperatively the patient was anemic, this appears to be chronic in etiology and exacerbated by surgery. Patient was given oral iron and serial CBC showed her hemoglobin to be stable in the 7-1/2 range. Postoperative and 3 patient's felt to be stable for discharge home follow up with Dr. Amos 1 week. Procedures: Induction of labor. Emergent primary low transverse section Patient Condition at Discharge: Good Plan - Discharge Summary Discharge Rx Participant: Yes New Discharge Prescriptions: New Ferrous Sulfate [Iron (65 MG Elemental)] 325 mg PO BID-W/MEALS #60 tab Ibuprofen [Motrin] 600 mg PO Q6H #30 tab oxyCODONE HCL [OxyIR] 5 mg PO Q6HR PRN #12 tab PRN Reason: Pain No Action Oseltamivir Phosphate 75 mg PO BID #9 capsule Discharge Medication List Oseltamivir Phosphate 75 mg PO BID #9 capsule 06/08/22 [Rx] Ferrous Sulfate [Iron (65 MG Elemental)] 325 mg PO BID-W/MEALS #60 tab 07/13/22 [Rx] Ibuprofen [Motrin] 600 mg PO Q6H #30 tab 07/13/22 [Rx] oxyCODONE HCL [OxyIR] 5 mg PO Q6HR PRN #12 tab 07/13/22 [Rx] Follow up Appointment(s)/Referral(s): Sania Amos DO [Doctor of Osteopathic Medicine] - 08/23/22 3:45 pm (Also please see Dr. Amos in 1 week for an incision check.) Patient Instructions/Handouts: (DC), Iron Rich Diet (DC), Iron Deficiency Anemia (GEN) Activity/Diet/Wound Care/Special Instructions: No heavy lifting or strenuous activity for 6 weeks. No intercourse or anything per vagina for 6 weeks. Please call if any fever, chills, excessive vaginal bleeding, and/or abdominal pain. Discharge Disposition: HOME SELF-CARE
[2022-07-13 07:21] LABS: Anisocytosis Slight; Basophils % (A) 0 %; Eosinophils # (A) 0.2 k/uL (0-0.7); Eosinophils % (A) 1 %; HCT 23.5 % (34.0-46.0); HGB 7.4 gm/dL (11.4-16.0); Hypochromasia Slight; Lymphocytes # (A) 2.4 k/uL (1.0-4.8); Lymphocytes % (A) 17 %; MCH 22.6 pg (25.0-35.0); MCHC 31.6 g/dL (31.0-37.0); MCV 71.6 fL (80.0-100.0); Mean Platelet Volume 8.8; Microcytosis Moderate; Monocytes # (A) 0.5 k/uL (0-1.0); Monocytes % (A) 3 %; Neutrophils # (A) 10.4 k/uL (1.3-7.7); Neutrophils % (A) 75 %; Platelet Count 189 k/uL (150-450); Poikilocytosis Slight; RBC 3.28 m/uL (3.80-5.40); RDW 16.9 % (11.5-15.5); WBC 13.8 k/uL (3.8-10.6)
[2022-07-13 07:54] VITALS: BP 116/79; PULSE 91; RESP 15; TEMP 97.6
[2022-07-13] MEDS: SENNOSIDES-DOCUSATE SODIUM 1 EACH TAB PO SCH (09:02)
[2022-07-13] MEDS: FERROUS SULFATE 325 MG TAB PO SCH (09:02)
== END 2022-07-13 11:45 | disposition home or self-care (01) | DRG 788 ==
LOC: 4FBP 08:49
PROVIDERS: ADMIT Obstetrics & Gynecology; ATTEND Obstetrics & Gynecology
PROC: 10907ZC Drainage of Amniotic Fluid, Therapeutic from Products of Conception, Via Natural or Artificial Opening (ICD-10-PCS; 2022-07-10)
PROC: 3E033VJ Introduction of Other Hormone into Peripheral Vein, Percutaneous Approach (ICD-10-PCS; 2022-07-10)
PROC: 4A0HXCZ Measurement of Products of Conception, Cardiac Rate, External Approach (ICD-10-PCS; 2022-07-10)
PROC: 10D00Z1 Extraction of Products of Conception, Low, Open Approach (ICD-10-PCS; principal; 2022-07-10 21:30)
DX: O69.0XX0 Labor and delivery complicated by prolapse of cord, not applicable or unspecified (principal); O32.2XX0 Maternal care for transverse and oblique lie, not applicable or unspecified; F90.9 Attention-deficit hyperactivity disorder, unspecified type; O76 Abnormality in fetal heart rate and rhythm complicating labor and delivery; F31.9 Bipolar disorder, unspecified; O99.334 Smoking (tobacco) complicating childbirth; O99.02 Anemia complicating childbirth; D64.9 Anemia, unspecified; F17.210 Nicotine dependence, cigarettes, uncomplicated; O99.344 Other mental disorders complicating childbirth; Z37.0 Single live birth; Z3A.39 39 weeks gestation of pregnancy; Z88.0 Allergy status to penicillin
CPT/HCPCS: 74018; 85025; 86850; 86900; 86901

== ENCOUNTER 2022-09-24 21:40 | Emergency (ER) | payer OTHER ==
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
[2022-09-24 23:03] VITALS: BP 128/76; PULSE 94; RESP 18; TEMP 98.3
== END 2022-09-24 23:13 | disposition home or self-care (01) ==
LOC: EC 21:40
DX: Z46.6 Encounter for fitting and adjustment of urinary device (principal); F17.200 Nicotine dependence, unspecified, uncomplicated; Z88.0 Allergy status to penicillin
CPT/HCPCS: 51798; 99283

== ENCOUNTER 2022-11-08 20:11 | Emergency (ER) | payer OTHER ==
[2022-11-08 20:18] VITALS: RESP 18
[2022-11-08 20:46] LABS: Anisocytosis Slight; Basophils % (A) 0 %; Eosinophils # (A) 0.1 k/uL (0-0.7); Eosinophils % (A) 1 %; HCT 34.3 % (34.0-46.0); Hypochromasia Slight; Lymphocytes # (A) 1.6 k/uL (1.0-4.8); Lymphocytes % (A) 20 %; MCH 21.4 pg (25.0-35.0); MCV 66.7 fL (80.0-100.0); Mean Platelet Volume 8.4; Microcytosis Marked; Monocytes # (A) 0.5 k/uL (0-1.0); Monocytes % (A) 6 %; Neutrophils # (A) 5.8 k/uL (1.3-7.7); Neutrophils % (A) 71 %; Platelet Count 204 k/uL (150-450); RBC 5.15 m/uL (3.80-5.40); RDW 17.1 % (11.5-15.5); WBC 8.2 k/uL (3.8-10.6)
--- NOTE | 2022-11-08 20:57 | ED ---
Abdominal Pain HPI - General Chief Complaint: Abdominal Pain Stated Complaint: ABD-SIDE PAIN Time Seen by Provider: 11/08/22 20:55 Source: patient, RN notes reviewed Mode of arrival: wheelchair Limitations: no limitations - History of Present Illness Initial Comments: This is a 27-year-old female who presents to the emergency department for right flank pain. Symptoms started 2 days ago. Patient notes that she is and her last menstrual period was 09/14/22. She has seen Dr. Amos in the past and is . However, states that she plans on terminating this . States that the pain is worse with movement and inhalation. Denies any urinary symptoms. Reports a history of kidney stones, but is unsure if this feels the same. Denies any vaginal bleeding. She is taking ibuprofen and Tylenol with no relief in symptoms. Reports associated nausea. Denies any fevers, chills, sore throat, cough, dyspnea, chest pain, palpi tations, diarrhea, or headaches. MD Complaint: flank pain - Related Data Previous Rx's Medication Instructions Recorded Oseltamivir Phosphate 75 mg PO BID #9 capsule 06/08/22 Ferrous Sulfate [Iron (65 MG 325 mg PO BID-W/MEALS #60 tab 07/13/22 Elemental)] Ibuprofen [Motrin] 600 mg PO Q6H #30 tab 07/13/22 oxyCODONE HCL [OxyIR] 5 mg PO Q6HR PRN #12 tab 07/13/22 Allergies Allergy/AdvReac Type Severity Reaction Status Date / Time Penicillins Allergy Rash/Hives Verified 11/08/22 20:16 Review of Systems ROS Statement: Those systems with pertinent positive or pertinent negative responses have been documented in the HPI. ROS Other: All systems not noted in ROS Statement are negative. Past Medical History Past Medical History: Blood Disorder, Seizure Disorder History of Any Multi-Drug Resistant Organisms: None Reported Past Surgical History: Ear Surgery, Orthopedic Surgery, Tonsillectomy Additional Past Surgical History / Comment(s): femur fracture Past Anesthesia/Blood Transfusion Reactions: No Reported Reaction Past Psychological History: ADD/ADHD, Bipolar Smoking Status: Current every day smoker Past Alcohol Use History: Rare Past Drug Use History: None Reported - Past Family History Father Family Medical History: No Reported History General Exam - General Exam Comments Initial Comments: Visual Physical Exam Vital signs reviewed General: Well-appearing, nontoxic, no acute distress. Head: Normocephalic, atraumatic Eyes: PERRLA, EOMI ENT: Airway patent Chest: Nonlabored breathing Skin: No visual rash, normal skin tone Neuro: Alert and oriented 3 Musculoskeletal: No gross abnormalities Limitations: no limitations General appearance: alert, in no apparent distress Head exam: Present: atraumatic, normocephalic, normal inspection Respiratory exam: Present: normal lung sounds bilaterally. Absent: respiratory distress, wheezes, rales, rhonchi, stridor Cardiovascular Exam: Present: regular rate, normal rhythm, normal heart sounds. Absent: systolic murmur, diastolic murmur, rubs, gallop, clicks Back exam: Present: CVA tenderness (R). Absent: CVA tenderness (L) Neurological exam: Present: alert, oriented X3, CN II-XII intact Psychiatric exam: Present: normal affect, normal mood Skin exam: Present: warm, dry, intact, normal color. Absent: rash Course Vital Signs 11/08/22 11/09/22 20:16 00:00 Temperature 98 F 97.9 F Pulse Rate 105 H 89 Respiratory 18 18 Rate Blood Pressure 133/84 132/79 O2 Sat by Pulse 98 99 Oximetry Medical Decision Making - Medical Decision Making This is a 27-year-old female who presents to the emergency department for right flank pain. Was pt. sent in by a medical professional or institution? @ -No Did you speak to anyone other than the patient for history? @ -No Did you review nursing and triage notes? @ -Yes, and I agree, it is accurate with regards to the patient's symptoms. Were old charts reviewed? @ -No Differential Diagnosis? @ -Differential Flank Pain: Renal calculus, UTI, pyelonephritis, muscular strain, this is not meant to be an all-inclusive list. EKG interpreted by me (3pts min.)? @ -Not obtained X-rays interpreted by me (1pt min.)? @ -Not obtained CT interpreted by me (1pt min.)? @ -Computed tomography scan of the abdomen and pelvis obtained. My interpretation identifies no evidence of bowel wall thickening or free air. U/S interpreted by me (1pt. min.)? @ -Not interpreted by me What testing was considered but not performed? (CT, X-rays, U/S, labs)? Why? @ -None What meds were considered but not given? Why? @ -None Did you discuss the management of the patient with other professionals? @ -No Did you reconcile home meds? @ -No Was smoking cessation discussed for >3mins.? @ -No Was critical care preformed (if so, how long)? @ -No Were there social determinants of health that impacted care today? How? (Homelessness, low income, unemployed, alcoholism, drug addiction, transportation, low edu. Level, literacy, decrease access to med. care, prison, rehab)? @ -No Was there de-escalation of care discussed even if they declined? (Discuss DNR or withdrawal of care, Hospice)? @ -No What co-morbidities impacted this encounter? (DM, HTN, Smoking, COPD, CAD, Cancer, CVA, Hep., AIDS, mental health diagnosis, sleep apnea, morbid obesity)? @ - Was patient admitted / discharged? @ -Discharged. Lab work obtained and found to be nonactionable. Urinalysis negative for signs of infection. We originally obtained an ultrasound of the kidneys, ureters, and bladder. No acute findings were noted. Patient continued to express that she does not wish to proceed with the . Discussed that we can do a computed tomography scan. However, in the event that she does decide to continue with the , this poses radiation risks to the fetus. Patient expresses understanding and continues to remain adamant that she will terminate and wishes to proceed with the computed tomography scan. Computed tomography scan reveals mild distention and fluid-filled endometrial canal, particularly in the uterine fundus region. However, it appears that the radiologist who read this report was not told that the patient was , and these findings are likely related to her . She was given IV fluids, Zofran, and Ofirmev. She states that she continued to be in pain and requested something stronger. Morphine was subsequently administered. Prior to this, we discussed that morphine does pose risks to the fetus if she were to proceed with . Patient again expresses understanding and is adamant that she will terminate the . Symptoms improved following the morphine administration and she felt comfortable for discharge home. She plans to follow-up with [facility] for termination. Advised she continue to take Tylenol as needed for any additional pain. Undiagnosed new problem with uncertain prognosis? @ -None Drug Therapy requiring intensive monitoring for toxicity (Heparin, Nitro, Insulin, Cardizem)? @ -None Were any procedures done? @ -None Diagnosis/symptom? @ -Right flank pain, abdominal pain in Acute, or Chronic, or Acute on Chronic? @ -Acute Uncomplicated (without systemic symptoms) or Complicated (systemic symptoms)? @ -Uncomplicated Side effects of treatment? @ -None Exacerbation, Progression, or Severe Exacerbation] @ -Not applicable Poses a threat to life or bodily function? @ -No Return precautions reviewed in depth, the patient is instructed to return to the emergency department with any new, worsening, or concerning symptoms. Patient verbalized understanding. This case was discussed in detail with the attending ED physician, Dr. Putnam. Presentation, findings, and treatment plan discussed in detail as well. - Lab Data Result diagrams: 11/08/22 20:32 11/08/22 20:32 Lab Results 11/08/22 11/08/22 11/08/22 Range/Units 20:32 20:32 22:33 WBC 8.2 (3.8-10.6) k/uL RBC 5.15 (3.80-5.40) m/uL Hgb 11.0 L (11.4-16.0) gm/dL Hct 34.3 (34.0-46.0) % MCV 66.7 L (80.0-100.0) fL MCH 21.4 L (25.0-35.0) pg MCHC 32.0 (31.0-37.0) g/dL RDW 17.1 H (11.5-15.5) % Plt Count 204 (150-450) k/uL MPV 8.4 Neutrophils % 71 % Lymphocytes % 20 % Monocytes % 6 % Eosinophils % 1 % Basophils % 0 % Neutrophils # 5.8 (1.3-7.7) k/uL Lymphocytes # 1.6 (1.0-4.8) k/uL Monocytes # 0.5 (0-1.0) k/uL Eosinophils # 0.1 (0-0.7) k/uL Basophils # 0.0 (0-0.2) k/uL Hypochromasia Slight Anisocytosis Slight Microcytosis Marked Sodium 135 L (137-145) mmol/L Potassium 3.6 (3.5-5.1) mmol/L Chloride 101 (98-107) mmol/L Carbon Dioxide 20 L (22-30) mmol/L Anion Gap 14 mmol/L BUN 8 (7-17) mg/dL Creatinine 0.44 L (0.52-1.04) mg/dL Est GFR (CKD-EPI)AfAm >90 (>60 ml/min/1.73 sqM) Est GFR (CKD-EPI)NonAf >90 (>60 ml/min/1.73 sqM) Glucose 98 (74-99) mg/dL Calcium 9.0 (8.4-10.2) mg/dL Total Bilirubin 0.3 (0.2-1.3) mg/dL AST 30 (14-36) U/L ALT 27 (4-34) U/L Alkaline Phosphatase 139 H (38-126) U/L Total Protein 7.9 (6.3-8.2) g/dL Albumin 4.5 (3.5-5.0) g/dL Amylase 44 (30-110) U/L Lipase 67 (23-300) U/L HCG, Quant 55994.6 mIU/mL Urine Color Yellow Urine Appearance Clear (Clear) Urine pH 5.5 (5.0-8.0) Ur Specific [place] 1.022 (1.001-1.035) Urine Protein Negative (Negative) Urine Glucose (UA) Negative (Negative) Urine Ketones Negative (Negative) Urine Blood Negative (Negative) Urine Nitrite Negative (Negative) Urine Bilirubin Negative (Negative) Urine Urobilinogen <2.0 (<2.0) mg/dL Ur Leukocyte Esterase Small H (Negative) Urine RBC <1 (0-5) /hpf Urine WBC 4 (0-5) /hpf Ur Squamous Epith Cells 2 (0-4) /hpf Urine Bacteria Rare H (None) /hpf Urine Mucus Rare H (None) /hpf - Radiology Data Radiology results: report reviewed, image reviewed Disposition Clinical Impression: Right flank pain, Abdominal pain affecting Disposition: HOME SELF-CARE Instructions (If sedation given, give patient instructions): Abdominal Pain in (ED), Flank Pain (ED) Additional Instructions: Return to the emergency department with any new, worsening, or concerning symptoms. Take Tylenol as needed for pain relief. You can have the Zofran up to every 8 hours as needed for nausea and vomiting. Make sure that you remain well-hydrated. Follow up with your primary care provider in 1-2 days. Is patient prescribed a controlled substance at d/c from ED?: No Referrals: None,Stated [Primary Care Provider] - 1-2 days
[2022-11-08 21:01] LABS: ALT 27 U/L (4-34); AST 30 U/L (14-36); African American GFR (CKD) >90 (>60 ml/min/1.73 sqM); Albumin 4.5 g/dL (3.5-5.0); Alkaline Phosphatase 139 U/L (38-126); Amylase 44 U/L (30-110); Anion Gap 14 mmol/L; Blood Urea Nitrogen 8 mg/dL (7-17); Carbon Dioxide 20 mmol/L (22-30); Chloride 101 mmol/L (98-107); Glucose 98 mg/dL (74-99); Lipase 67 U/L (23-300); Non-African American GFR(CKD) >90 (>60 ml/min/1.73 sqM); Potassium 3.6 mmol/L (3.5-5.1); Sodium 135 mmol/L (137-145); Total Bilirubin 0.3 mg/dL (0.2-1.3); Total Protein 7.9 g/dL (6.3-8.2)
[2022-11-08 21:52] LABS: HCG,Quantitative Serum 66140.6 mIU/mL
[2022-11-08] MEDS ORDERED: SODIUM CHLORIDE 0.9% 1,000 ML IV STA (22:35)
[2022-11-08] MEDS ORDERED: ACETAMINOPHEN IV (For NPO) 1,000 MG in EMPTY BAG 1 BAG IVPB STA (22:35)
[2022-11-08] MEDS ORDERED: ONDANSETRON 4 MG/2 ML VIAL IVP STA (22:35)
[2022-11-08 22:41] LABS: Appearance,Urine Clear (Clear); Bacteria,Urine Rare /hpf; Bilirubin,Urine Negative (Negative); Blood,Urine Negative (Negative); Color,Urine Yellow; Glucose,Urine (UA) Negative (Negative); Ketones,Urine Negative (Negative); Leukocyte Esterase,Urine Small (Negative); Mucus,Urine Rare /hpf; Nitrite,Urine Negative (Negative); PH, Urine 5.5 (5.0-8.0); Protein,Urine Negative (Negative); RBC,Urine <1 /hpf (0-5); Specific Gravity,Urine 1.022 (1.001-1.035); Squamous Epithelial Cell,Urine 2 /hpf (0-4); Urobilinogen,Urine <2.0 mg/dL (<2.0); WBC,Urine 4 /hpf (0-5)
--- NOTE | 2022-11-08 23:06 | US ---
EXAMINATION TYPE: US kidneys/renal and bladder DATE OF EXAM: 11/08/2022 COMPARISON: CT abdomen and pelvis December 31, 2019 CLINICAL INDICATION: Female, 27 years old with history of Right flank pain; right flank pain x 2 days . Hx of renal stones a couple years ago. Pt is pg first tri EXAM MEASUREMENTS: Right Kidney: 12.0 x 4.6 x 4.8 cm Left Kidney: 12.0 x 5.2 x 5.6 cm Right Kidney: No hydronephrosis or masses seen Left Kidney: No hydronephrosis or masses seen Bladder: Limited due to being mostly empty Bilateral Jets seen: Only lt jet seen Incidental: Spleen is measuring 13.6cm. Slightly enlarged There is no evidence for hydronephrosis at this point in time. No masses are identified. The urinary bladder is not greatly distended. Bilateral ureteral jets are not seen. IMPRESSION: No hydronephrosis seen bilaterally. Tiny bilateral renal calculi on prior CT are less wel l seen on ultrasound.
[2022-11-08] MEDS ORDERED: MORPHINE SULFATE 4 MG/ML SYRINGE IVP STA (23:52)
[2022-11-09 00:01] VITALS: BP 132/79; PULSE 89; TEMP 97.9
--- NOTE | 2022-11-09 00:23 | CT ---
EXAM: CT Abdomen and Pelvis With Intravenous Contrast CLINICAL HISTORY: ITS.REASON CT Reason: Right flank and RLQ pain TECHNIQUE: Axial computed tomography images of the abdomen and pelvis with intravenous contrast. CTDI is 27.6 mGy and DLP is 1330.2 mGy-cm. This CT exam was performed using one or more of the following dose reduction techniques: automated exposure control, adjustment of the mA and/or kV according to patient size, and/or use of iterative reconstruction technique. COMPARISON: No previous studies. FINDINGS: Lung bases: Minimal scarring and subsegmental atelectasis noted at the lung bases. Heart: Cardiomegaly. ABDOMEN: Liver: The liver and the spleen enhance uniformly. Gallbladder and bile ducts: The gallbladder is in a partially contracted state but is unremarkable. No calcified stones. No ductal dilation. Pancreas: See below. Spleen: See above. Adrenals: The adrenal glands, the head, body, tail of the pancreas are unremarkable. Kidneys and ureters: On delayed imaging, the visualized renal collecting systems and the ureters are unremarkable. Nonobstructing left renal calculi the largest of which measures 0.4 cm in the upper pole region. No hydronephrosis of the kidneys bilaterally. Stomach and bowel: Moderate quantity of ingested material in the stomach. Moderate quantity of stool throughout the colon. No obstruction. No mucosal thickening. PELVIS: Appendix: Appendix is seen on coronal image 41 and is unremarkable. Bladder: Unremarkable. No mass. Reproductive: Fluid-filled endometrial canal. ABDOMEN and PELVIS: Intraperitoneal space: Unremarkable. No free air. No significant fluid collection. Bones/joints: No acute fracture. No dislocation. No spondylolysis. Soft tissues: Ischiorectal fat is clean. Vasculature: Portal vein is patent. Flow is noted within the celiac, SMA, the renal arteries, and RENETTA. No abdominal aortic aneurysm. Lymph nodes: Unremarkable. No retroperitoneal lymphadenopathy. No pelvic or inguinal lymphadenopathy. Other findings: Minimal elevation of the right hemidiaphragm. IMPRESSION: 1. Mildly distended and fluid-filled endometrial canal particular in the fundal region of the uterus. Transvaginal imaging of the pelvis is advised for further assessment. 2. The appendix is unremarkable. 3. No bowel obstruction. 4. The gallbladder is unremarkable. 5. No renal calculus or hydronephrosis.
[2022-11-09] MEDS ORDERED: FAMOTIDINE 20 MG/2 ML VIAL IV STA (00:30)
[2022-11-09] MEDS ORDERED: ONDANSETRON 4 MG ODT STARTER PACK 2 TAB BTL PO STA (01:00)
[2022-11-09] MEDS ORDERED: ACET/COD 300 MG/30 MG STARTER PACK 6 TAB BTL PO STA (01:00)
== END 2022-11-09 01:13 | disposition home or self-care (01) ==
LOC: EC 20:11
DX: O26.891 Other specified pregnancy related conditions, first trimester (principal); O99.331 Smoking (tobacco) complicating pregnancy, first trimester; N20.0 Calculus of kidney; F17.200 Nicotine dependence, unspecified, uncomplicated; Z88.0 Allergy status to penicillin; Z86.59 Personal history of other mental and behavioral disorders; Z3A.00 Weeks of gestation of pregnancy not specified
CPT/HCPCS: 36415; 80053; 82150; 83690; 85025; 81001; 84702; 76770; 99284; 96365; 96375 ×3; 96361; J2405; J0131; 74177